=== PATIENT | male | born 1935 | race Caucasian/White ===

== ENCOUNTER 2017-05-12 08:17 | Day surgery (SDC) | payer MEDICARE, BC ==
[2017-05-12] MEDS ORDERED: TETRACAINE HCL 0.5% 15 ML OPTH BTL OPTH ONE ×2 (12:58→13:18)
[2017-05-12] MEDS ORDERED: LIDOCAINE 2% MDV (20MG/ML) 20ML VIAL IV ONE ×3 (12:58→15:08)
[2017-05-12] MEDS ORDERED: EPINEPHRINE 1 MG/ML AMPUL SQ ONE ×2 (12:58→13:18)
[2017-05-12] MEDS ORDERED: NEOMYCIN/POLY./DEXAM OPTH OINT OPTH ONE ×2 (12:58→13:18)
--- NOTE | 2017-05-12 15:00 | OP NOTE CHAMES ---
DATE OF PROCEDURE: 05/12/17 PREOPERATIVE DIAGNOSIS: Nuclear sclerotic cataract and posterior subcapsular cataract, left eye. POSTOPERATIVE DIAGNOSIS: Nuclear sclerotic cataract and posterior subcapsular cataract, left eye. OPERATION: Phacoemulsification of cataractous lens with implantation of intraocular lens. LENS IMPLANT USED: Lizama Model PCB00 + 21.0 diopters. COMPLICATIONS: None. PROCEDURE IN DETAIL: Following a retrobulbar and facial block, the patient was prepped and draped in the usual fashion for eye surgery. A lid speculum was placed in the left eye after which a 2.4 mm tunnel wound was placed at the temporal limbus and dissected into clear cornea. A paracentesis was placed at 2 oclock hours to the left and right of the initial incision and the chamber deepened with Viscoelastic. The keratome was then used to enter the anterior chamber after which the continuous circular capsulorrhexis was accomplished without difficulty using a bent needle and a Utrata forceps. Hydrodissection and hydrodelineation of the lens was performed after which the nucleus of the lens was removed using the Phaco handpiece in the [id number] technique. The residual cortical material was irrigated and aspirated from the eye after which the bag and chamber were re-examined. The bag was re-inflated with Viscoelastic and the intraocular lens injected into the capsular bag where it centered well. The Viscoelastic was then copiously irrigated and aspirated from the eye after which the temporal tunnel wound and paracentesis were hydrated and the wounds were examined. They were noted to be watertight. The lid speculum was removed from the eye and the eye patched and shielded. The patient was transferred to the recovery room in satisfactory condition and given an appointment to be reexamined in the clinic later today or as directed by Dr. Muse. Michael Muse M.D. Date & Time JOB NUMBER: [id number] MTDD
[2017-05-12] MEDS ORDERED: PROPOFOL 10 MG/ML VIAL IV ONE (15:08)
== END 2017-05-12 10:27 | disposition home or self-care (01) ==
LOC: SUR 08:17
PROVIDERS: ATTEND Ophthalmology
DX: H25.12 Age-related nuclear cataract, left eye (principal); E03.9 Hypothyroidism, unspecified; I48.2 Chronic atrial fibrillation; H25.042 Posterior subcapsular polar age-related cataract, left eye
CPT/HCPCS: J0171

== ENCOUNTER 2017-07-17 12:18 | Inpatient (IN) | payer MEDICARE, BC ==
[2017-07-19] MEDS ORDERED: IPRATROPIUM/ALBUTEROL (0.5MG/3MG) NEB INH PRN (16:54)
[2017-07-19] MEDS ORDERED: OXYCODONE HCL/APAP 5MG/325MG TABLET PO PRN ×2 (16:55)
--- NOTE | 2017-07-19 17:52 | Physical Therapy Tx Note ---
Physical Therapy Tx Note - Treatment Note Physical Therapy Tx Note: Detail (Unable to see patient, returned from OR late and complained of nausea and LE numbness.)
[2017-07-19] MEDS: ATORVASTATIN 20 MG TABLET PO SCH (21:18)
[2017-07-19] MEDS: DIPHENHYDRAMINE HCL 25 MG CAPSULE PO PRN (21:18)
[2017-07-19] MEDS: MAGNESIUM OXIDE 400 MG TABLET PO SCH (21:18)
[2017-07-19] MEDS: METOPROLOL TART 25 MG TABLET PO SCH (21:18)
[2017-07-19] MEDS: CALCIUM CARB/VITAMIN D 500MG/200IU PO SCH (21:18)
[2017-07-20] MEDS: PANTOPRAZOLE SODIUM 40 MG TABLET PO SCH (06:16)
[2017-07-20] MEDS: LEVOTHYROXINE SODIUM 50 MCG TABLET PO SCH (06:16)
[2017-07-20 06:56] LABS: HEMATOCRIT 26.9 % (42.0-52.0); HEMOGLOBIN 8.5 gm/dl (14.0-18.0); MEAN CELL VOLUME 95.7 fl (81-97); MEAN CORPUSCULAR HEMOGLOBIN 30.2 pg (27-33); MEAN CORPUSCULAR HGB CONC 31.6 g/dl (32-36); PLATELET COUNT 398 K/uL (130-400); RED BLOOD COUNT 2.81 M/uL (4.40-5.70); RED CELL DISTRIBUTION WIDTH 14.7 % (11.5-14.5); WHITE BLOOD COUNT W/O DIFF 10.2 K/uL (4.2-12.2)
[2017-07-20 07:10] LABS: HYPOCHROMIA 1+; PLATELET ESTIMATE NORMAL (NORMAL)
[2017-07-20 07:12] LABS: ALB/GLOB RATIO 1.3 (1.1-1.8); ALBUMIN 3.3 gm/dL (3.5-5.0); ALKALINE PHOSPHATASE 74 U/L (38-126); ALT/SGPT 38 U/L (21-72); ANION GAP 9.8 (7-16); AST/SGOT 27 U/L (17-59); BILIRUBIN,TOTAL 1.86 mg/dL (0.2-1.3); BLOOD UREA NITROGEN 16 mg/dL (9-20); CARBON DIOXIDE 28.2 mmol/L (22-30); CREATININE 1.1 mg/dL (0.66-1.25); EST GLOMERULAR FILTRATION RATE > 60 ml/min; GLUCOSE,RANDOM 94 mg/dL (70-110); TOTAL PROTEIN 5.8 gm/dL (6.3-8.2)
[2017-07-20] MEDS: PREDNISONE 5 MG TAB PO SCH (09:01)
[2017-07-20] MEDS: AMIODARONE HCL 200 MG TABLET PO SCH (10:09)
[2017-07-20] MEDS: MAGNESIUM OXIDE 400 MG TABLET PO SCH ×2 (10:09→21:34)
[2017-07-20] MEDS: CALCIUM CARB/VITAMIN D 500MG/200IU PO SCH ×2 (10:09→21:34)
[2017-07-20] MEDS: ASPIRIN 81 MG TABEC PO SCH (10:09)
[2017-07-20] MEDS: METOPROLOL TART 25 MG TABLET PO SCH ×2 (10:10→21:41)
[2017-07-20] MEDS: PATIENT OWN MED: FINASTERIDE 5 MG PO SCH (10:10)
[2017-07-20] MEDS: [UNRECOGNIZED DRUG - OTHER] PO SCH (10:11)
[2017-07-20] MEDS: SENNOSIDES/DOCUSATE SODIUM UD CAPSULE PO PRN (10:16)
[2017-07-20] MEDS ORDERED: POTASSIUM CHLORIDE 20 MEQ/15ML CUP PO ONE (13:08)
--- NOTE | 2017-07-20 13:09 | History & Physical ---
History of Present Illness - Date Date of Service for History & Physical: 07/20/17 - History of Present Illness Admitting Diagnosis: Deconditioning due to AAA History of Present Illness: 81 yo male admitted to our NEO unit following AAA repair 07/11/17. PMHx of RA, TIA, paroxysmal afib, hypercholesterolemia, BPH, and bilateral inguinal hernia repair. Patient had CT imaging of abdomen prior to inguinal hernia repair. This is when patient's AAA was discovered. This was monitored for a year, however, noting growth from 3.6 to 4.5 cm & juxtarenal, patient and choose to have elective repair completed. 07/[address] Gladis Sanchez for routine open repair of AAA. During the procedure, patient experienced significant blood loss. This was replaced wth cell save but post op coagulopathy developed. This was treated with FFP. Patient was extubated after surgery but required reintubation in pacu. He was transferred to ICU on the ventilator post op. Initially, he was managed w/ crystal volume replacement, required transfusion to support BP. POD1: required additional transfusion of PRC, extubated but continued to require increased O2. Switched to high flow oxygen. Gallego d/c'd. Day 2: diuresis, reglan for gastric mobility, CLD. #3: removal of chest tubes, resp status stable, high flow weaned to NC, diuresis increased, activity also increased. #4: drop in hgb , hypoxia improved (on 2 L NC), diuresis continued. #5: bowel movement. transferred to step down. #6: diuresis, electrolytes replaced. #7: oxygen weaned , tolerating RA. Diuretic held, albumin given. #8: ready for NEO. Patient retired. Lives at home with . Prior to surgery, patients independent with ADLS. He assisted with yard work and house chores. Lives in a two story home. Three steps into the house with railing. PCP: Dr. Lynn Cardiothoracic surgeon: Dr. Gladis Sanchez- f/up visit 08/18 General - Cognitive Patterns Speech: Normal Thought Process: Intact Thought Content: Normal Orientation: Oriented x3 Orientation Comment: Has moments of confusion - Communication Preferred Language?: Estonian Perinatal Specialist Required: No Level of Education: High School Preferred Method of Learning: Seeing, Doing, Reading Comprehension Ability: No Impairment Able to Read: Yes Able to Write: Yes Select best description of speech pattern: Clear Speech Ability to express ideas and wants: Understood Understanding verbal content: Understands - Psychosocial Well-Being Usual Living Arrangement: Spouse - Physical Functioning Activity Level: Up with assist x1 Turning: With partial assist ROM Ability: Limited/Compromised Assistive Devices: 2 Wheel Walker Ambulation Ability: Needs Assist Bed Mobility: Independent Transfer Ability: Needs Assist Bathing Ability: Needs Assist Personal Hygiene: Needs Assist Dressing Ability: Needs Assist Eating (Feeding) Ability: Independent Toileting Ability: Needs Assist Administer Own Medication: Dependent - Continence Bowel Pattern: Normal for Patient Bladder Pattern: Normal - Dental Status Unable to examine: No Broken or loosely fitting full or partial dentures: No No natural teeth or tooth fragment(s) (edentulous): No Abnormal mouth tissue (ulcers, masses, oral lesions, etc.): No Obvious or likely cavity or broken natural teeth: No Inflamed or bleeding gums or loose natural teeth: No Mouth/facial pain, discomfort or difficulty chewing: No - Nutrition Screening Poor oral intake > 1 week: Yes Unplanned weight loss in specified time frame: No Nutrition Support via tube feedings or parenteral nutrition: No Pressure Ulcer: No Significantly underweight define as BMI <18.5 kg/m2: No Albumin <2.5mg/dL: No Persistent nausea/vomiting/diarrhea >3 days: No Difficulty chewing/swallowing/mouth sores: No Admitting Diagnosis: No Nutrition Risk Score: High Risk Review of Systems Constitutional: Denies: Chills, Fever, Night sweats, Weakness Eyes: Denies: Vision change ENT: Denies: Congestion Respiratory: Denies: Cough, Dyspnea, Wheezes Cardiovascular: Denies: Chest pain, Dyspnea on exertion, Palpitations Endocrine: Reports: Fatigue. Denies: Polydipsia, Polyuria Gastrointestinal: Denies: Abdominal pain, Constipation, Diarrhea, Hematemesis, Hematochezia, Nausea, Vomiting Genitourinary: Denies: Dysuria, Frequency Musculoskeletal: Reports: Back pain (chronic) Skin: Reports: Change in color (at suture sites, normal healing) Neurological: Reports: Weakness (since surgery, unchanged). Denies: Confusion, Headache, Numbness Hematological/Lymphatic: Reports: Anemia Past Medical History - SOCIAL HISTORY Smoking Status: Former smoker - SURGICAL HISTORY Past Surgical History: TURPx2; inguinal hernia repair; right foot sx february 28 , AAA repair, cateract removal left eye, hernia surgeryx3, arthritis nodules removed from hands, right foot rebuilt, trigger finger release, callous removal - RESPIRATORY Hx Respiratory Disorders: Yes Hx Asthma: No Hx Bronchitis: No Hx COPD: Yes Hx Dyspnea: No Hx Pneumonia: Yes (oct 29) Hx Pulmonary Embolism: No Hx Sleep Apnea: No Hx Tuberculosis: No Hx of CPAP: No - CARDIOVASCULAR Hx Cardio Disorders: Yes Hx Abnormal EKG: Yes (afib) Hx Cardiac Cath: No Hx Chest Pain: No Hx CHF: No Hx Deep Vein Thrombosis: No Hx Edema: No Hx Heart Attack: No Hx Hypertension: No Hx Hypotension: No Hx Irregular Heartbeat: Yes Hx Palpitations: No Hx Pacemaker/Defib: No Hx Vascular Disease: No Comment:: AAA repair 2017 - NEURO Hx Neuro Disorders: Yes Hx Brain Tumor: No Hx CVA: No Hx Dementia: No Hx Dizziness: No Hx Headaches: No Hx Neuropathy: No Hx Parkinson's Disease: No Hx Seizures: No Hx Speech Problem: No Hx TIA: Yes Comment:: very [place]; has hearing aides - GI Hx GI Disorders: Yes Hx Abdominal Pain: No Hx Celiac Disease: No Hx Crohn's Disease: No Hx Diverticulitis: No Hx GI Bleed: No Hx Reflux: Yes (meds) Hx Hepatitis/Jaundice: No Hx Hiatal Hernia: No Hx Irritable Bowel: No Hx Liver Disease: No Hx Nausea/Vomiting: No Hx Obstructive Bowel: No Hx Pancreatitis: No Hx Rectal Bleeding: No Hx Ulcer: No Hx Wt Loss/Wt Gain: No Hx of Polyps: Yes - Hx Genitourinary Disorders: Yes Hx Bladder Problem: Yes Hx Dialysis: No Hx Kidney Stones: No Hx Prostate Problems: Yes (turp) Hx Renal Disease: No Hx UTI: No - ENDOCRINE Hx Endocrine Disorders: Yes Hx Diabetes: No Hx Thyroid Disease: Yes - MUSCULOSKELETAL Hx Musculoskeletal Disorders: Yes Hx Arthritis: Yes (ra) Hx Back Injury: No Hx Fibromyalgia: No Hx Gout: No Hx Musculoskeletal Disease: No Hx Osteoporosis: Yes (Prolia injection) Comment:: RA - PSYCH Hx Psych Problems: No - HEMATOLOGY/ONCOLOGY Hx Hematology/Oncology Disorders: Yes Hx Anemia: Yes Hx Blood Disorders: No Hx Bruising: Yes Hx Cancer: Yes (skin cancer) Hx Chemotherapy: No Hx Radiation Therapy: No Hx Clotting Problems: No Hx Sickle Cell Disease: No Hx Unexplained Bleeding: No Hx Blood Transfusions: Yes Hx Blood Transfusion Reaction: No Comment:: cannot use aspirin or Xalarto.. prostate; Family Medical History Any Significant Family History?: Yes Family Hx Comment (NOT TO BE USED IN PLACE OF ITEMS BELOW): mother had MS Hx Cancer: Brother/Sister Hx Diabetes: Mother Hx Heart Disease: Brother/Sister Hx Stroke: Mother H&P Meds/Allergies - Allergies Allergies: Allergies Allergy/AdvReac Type Severity Reaction Status Date / Time amoxicillin AdvReac NAUSEA AND Verified 05/12/15 10:36 VOMITING aspirin AdvReac BRUISING Verified 05/06/17 10:07 diphenhydramine AdvReac BLURRED Verified 05/06/17 10:08 VISION rivaroxaban [From Xarelto] AdvReac BRUISING Verified 05/06/17 10:06 sotalol AdvReac CHEST PAIN Verified 05/06/17 10:05 - Home Medications Previous Rx's Medication Instructions Recorded Sulfacetamide Sodium [Bleph10] 2 drop AFFEYE Q6HR #15 ml 05/12/15 - Active Medications Active Medications: Current Medications Acetaminophen (Tylenol 500mg Tab) 1,000 mg PO Q6H PRN PRN Reason: Pain - Moderate (5-7) Albuterol/Ipratropium (Duoneb) 3 ml INH Q6H PRN PRN Reason: SHORTNESS OF BREATH Amiodarone HCl (Pacerone) 100 mg PO DAILY [facility] Last Admin: 07/20/17 10:09 Dose: 100 mg Aspirin (Ecotrin (Ec)) 81 mg PO DAILY [facility] Last Admin: 07/20/17 10:09 Dose: 81 mg Atorvastatin Calcium (Lipitor) 40 mg PO QHS [facility] Last Admin: 07/19/17 21:18 Dose: 40 mg Calcium/Vitamin D (Calcium 500+D Tablet) 1 tab PO BID [facility] Last Admin: 07/20/17 10:09 Dose: 1 tab Diphenhydramine HCl (Benadryl Capsule) 25 mg PO QHS PRN PRN Reason: SLEEP Last Admin: 07/19/17 21:18 Dose: 25 mg Levothyroxine Sodium (Synthroid) 50 mcg PO DAILYTHY [facility] Last Admin: 07/20/17 06:16 Dose: 50 mcg Magnesium Oxide (Mag Ox) 400 mg PO BID [facility] Last Admin: 07/20/17 10:09 Dose: 400 mg Metoprolol Tartrate (Lopressor) 12.5 mg PO BID [facility] Last Admin: 07/20/17 10:10 Dose: 12.5 mg Oxycodone/Acetaminophen (Percocet 5-325 Mg Tablet) 1 udtab PO Q4H PRN PRN Reason: Pain - General Stop: 07/26/17 16:56 Last Admin: 07/19/17 19:12 Dose: 1 udtab Oxycodone/Acetaminophen (Percocet 5-325 Mg Tablet) 2 udtab PO Q4H PRN PRN Reason: Pain - General Stop: 07/26/17 16:56 Last Admin: 07/19/17 23:30 Dose: 2 udtab Pantoprazole Sodium (Protonix) 40 mg PO DAILYAC [facility] Last Admin: 07/20/17 06:16 Dose: 40 mg Patient Own Med: (Ocuvite Generic) 1 each PO DAILY [facility] Last Admin: 07/20/17 10:11 Dose: 1 each Patient Own Med: (Finasteride 5 Mg) 1 each PO DAILY [facility] Last Admin: 07/20/17 10:10 Dose: 1 each Potassium Chloride (Potassium Chloride) 20 meq PO NOW ONE Stop: 07/20/17 13:09 Prednisone (Prednisone 5mg) 2.5 mg PO DAILYWM [facility] Last Admin: 07/20/17 09:01 Dose: 2.5 mg Senna/Docusate Sodium (Senna Plus) 2 each PO BID PRN PRN Reason: CONSTIPATION Last Admin: 07/20/17 10:16 Dose: 2 each Physical Exam - Vital Signs Vital Signs: Vital Signs - Last 24 Hrs Temp Pulse Resp BP BP Pulse Ox 07/20/17 11:11 97.8 F 111/59 07/19/17 21:00 97.8 F 71 16 111/59 97 07/19/17 16:35 72 16 121/54 93 L - General General Appearance: Alert, Oriented x3, Cooperative, No acute distress Limitations: No limitations - Head Head exam: Atraumatic, Normocephalic - Eye Eye exam: Normal appearance - ENT ENT exam: Normal exam Ear exam: Normal external inspection Nasal Exam: Normal inspection Mouth exam: Normal external inspection Teeth exam: Normal inspection Throat exam: Normal inspection - Neck Neck exam: Normal inspection - Respiratory Respiratory exam: Normal lung sounds bilaterally - Cardiovascular Cardiovascular Exam: Regular rate, Normal rhythm - GI/Abdominal GI/Abdominal exam: Soft, Normal bowel sounds. negative: Distended, Guarding, Rebound - Rectal Rectal exam: Deferred - exam: Deferred - Extremities Extremities exam: Normal inspection, Normal capillary refill. negative: Calf tenderness, Tenderness - Back Back exam: Reports: Normal inspection - Neurological Neurological exam: Alert - Skin Skin exam: Dry, Warm Type of lesion: Other (b/l groin and left lateral abd incision open to air, small old blister sites now open to air. [address] site) H&P Results - Labs Result Diagrams: 07/20/17 06:15 07/20/17 06:15 Labs Last 24 Hours: Laboratory Results - last 24 hr 07/20/17 07/20/17 06:15 06:15 WBC 10.2 RBC 2.81 L Hgb 8.5 L Hct 26.9 L MCV 95.7 MCH 30.2 MCHC 31.6 L RDW 14.7 H Plt Count 398 MPV 10.0 Neutrophils % 75.0 Band Neutrophils % 1.0 Eosinophils % Not Reportable Basophils % Not Reportable Lymphocytes 15.0 L Monocytes 9.0 Platelet Estimate Normal Hypochromasia 1+ Sodium 140 Potassium 3.2 L Chloride 102 Carbon Dioxide 28.2 Anion Gap 9.8 BUN 16 Creatinine 1.1 Estimated GFR > 60 Random Glucose 94 Calcium 8.9 Total Bilirubin 1.86 H AST 27 ALT 38 Alkaline Phosphatase 74 Total Protein 5.8 L Albumin 3.3 L Globulin 2.5 Albumin/Globulin Ratio 1.3 Discharge Potential - Discharge Needs Community Services Used Prior to Admission: Home Health Nurse Patient Discharge Plan Description: Return Home Community Services Needed at Discharge: Home Health Nurse, Occupational Therapy , Physical Therapy Plan - Swing Bed Certification Initial Certification Due: 07/19/17 14 Day Re-Cert Due: 08/02/17 44 Day Re-Cert Due: 09/01/17 74 Day Re-Cert Due: 10/01/17 - Detailed Diagnosis and Plan (1) S/P AAA repair Current Visit: Yes Status: Acute Base Code: Z98.890 - OTHER SPECIFIED POSTPROCEDURAL STATES; Z86.79 - PERSONAL HISTORY OF OTHER DISEASES OF THE CIRCULATORY SYSTEM Comment: 07/20/17- 81 yo male s/p elective AAA repair post op day 9. Admitted to our NEO unit for generalized weakness following surgery. - will continue home medications. Hold MTX until follow up visit 08/18. - f/up with Dr. Gladis Sanchez M.D. Aug 18 as scheduled - VS twice daily - PT/OT to help build physical strength and functioning - Dietary evaluation noting low albumin, malnourished - daily h/h to moniter anemia (2) Weakness Current Visit: Yes Status: Acute Base Code: R53.1 - WEAKNESS Comment: - PT/OT to help build physical strength and functioning (3) Anemia Current Visit: Yes Status: Acute Base Code: D64.9 - ANEMIA, UNSPECIFIED Comment: 07/20/17- related to post op. stable from d/c. no signs of blood loss. continue to montor h/h. (4) DVT prophylaxis Current Visit: Yes Status: Acute Base Code: [id number] - Comment: 07/20/17- asa, pavel hose. avoid anti coagulation noting risk for penile bleeding. Will attemp to contact cardiothoracic surgeon to confirm. patient ambulating the room and participating in therapy. (5) Full code status Current Visit: Yes Status: Acute Base Code: Z78.9 - OTHER SPECIFIED HEALTH STATUS Comment: 07/20/17- pt is full code
--- NOTE | 2017-07-20 13:27 | Rehab Evaluation ---
Patient Information - Patient Information Diagnosis: Deconditioning due to AAA Ordered Treatment: PT Evaluate and Treat Status: Initial Evaluation Past Medical/Surgical Hx: PAST MEDICAL/SURGICAL HISTORY Past Surgical History TURPx2; inguinal hernia repair; right foot sx february 28, AAA repair, cateract removal left eye , hernia surgeryx3, arthritis nodules removed from hands, right foot rebuilt, trigger finger release, callous removal PMH - Respiratory Hx Respiratory Disorders Yes Hx Asthma No Hx Bronchitis No Hx Chronic Obstructive Yes Pulmonary Disease (COPD) Hx Dyspnea No Hx Pneumonia Yes: oct 29 Hx Pulmonary Embolism No Hx Sleep Apnea No Hx Tuberculosis No Hx of CPAP No PMH - Cardiovascular Hx Cardiovascular Disorders Yes Hx Abnormal EKG Yes: afib Hx Cardiac Catheterization No Hx Chest Pain No Hx Congestive Heart Failure No Hx Deep Vein Thrombosis No Hx Edema No Hx Heart Attack No Hx Hypertension No Hx Hypotension No Hx Irregular Heartbeat Yes Hx Palpitations No Hx Pacemaker/Defibrillator No Hx Vascular Disease No Hx Transient Ischemic Attacks Yes (TIA) Comment: AAA repair 2016 PMH - Neuro Hx Neurological Disorders Yes Hx Brain Tumor No Hx Cerebrovascular Accident No Hx Dementia No Hx Dizziness No Hx Headaches No Hx Neuropathy No Hx Parkinson's Disease No Hx Seizures No Hx Speech Problem No Hx Syncope No Hx Transient Ischemic Attacks Yes (TIA) Comment: very [place]; has hearing aides PMH - GI Hx Gastrointestinal Disorders Yes Hx Abdominal Pain No Hx Celiac Disease No Hx Crohn's Disease No Hx Diverticulitis No Hx Gastrointestinal Bleed No Hx Gastroesophageal Reflux Yes: meds Hx Hepatitis/Jaundice No Hx Hiatal Hernia No Hx Irritable Bowel No Hx Liver Disease No Hx Nausea/Vomiting No Hx Obstructive Bowel No Hx Pancreatitis No Hx Rectal Bleeding No Hx Ulcer No Hx Weight Loss/Weight Gain No PMH - Hx Genitourinary Disorders Yes Hx Bladder Problem Yes Hx Dialysis No Hx Kidney Stones No Hx Prostate Problems Yes: turp Hx Renal Disease No Hx Urinary Tract Infection No PMH - Endocrine Hx Endocrine Disorders Yes Hx Diabetes No Hx Thyroid Disease Yes PMH - Musculoskeletal Hx Musculoskeletal Disorders Yes Hx Arthritis Yes: ra Hx Back Injury No Hx Fibromyalgia No Hx Gout No Hx Musculoskeletal Disease No Hx Osteoporosis Yes: Prolia injection Comment: RA PMH - Psych Hx Psychiatric Problems No PMH - Hematology/Oncology Hx Hematology/Oncology Yes Disorders Hx Anemia Yes Hx Blood Disorders No Hx Bruising Yes Hx Cancer Yes: skin cancer Hx Chemotherapy No Hx Radiation Therapy No Hx Clotting Problems No Hx Sickle Cell Disease No Hx Unexplained Bleeding No Hx Blood Transfusion Reaction No Comment: cannot use aspirin or Xalarto.. prostate; Premorbid Status: Detail (The patient was previously independent with all mobility and ambulated without assistive device. The patient completed all yard work and assisted with lye treater at times.) Social History: Detail (The patient lives in a 2 story home with a basement. The patient's bedroom and main bathroom are on the second floor. The patient stated his staircase to the second floor consisted of 2 steps, a landing , then a full flight of stairs with one railing. The patient's home also had 3 steps at the front and back enterance with 1 railing. The patient's bathroom is equipped with a walk in shower in the main bathroom and elevated toilet seats in both bathrooms. No grab bars were present in the bathrooms. The patient has a walker with 2 wheels and a 4 wheeled walker.) Precautions: [place], Fall - Time With Patient Total Time Spent With Patient (Min): 30 Treatment Procedures: Detail (Initial Evaluation.) Subjective Information - Subjective Information Per Patient (The patient had some complaints of lower back pain level 2 at the highest. The patient also complained of fatigue after ambulating.) Objective Data - Mental Status Patient Orientation: Oriented x3 - ROM Within normal limits (LE AROM is WNL.) - Strength/Tone Not within normal limits (The patient's LE strength was generally 4+ to 5/5 except for hip flexors bilaterally 4/5, L quadriceps and hamstrings 4/5.) - Bed Mobility Independent (Independent with supine to and from sit transfer but not formally assessed.) - Transfers Independent (Independent with sit to and from stand transfer.) - Balance Balance Sitting: Good Balance Standing: Fair (The patient scored 20/28 using the Tinetti Assessment Tool which is in the moderate for risk for falling category. The patient exhibited increased postural sway when walking without device.) - Gait Detail (The patient ambulated with wheeled walker a distance of 120 feet x 1 with supervision for safety only. The patient required CG with ambulation without device due to increased postural sway. The patient experienced shortness of breath after ambulating.) Therapy Assessment - Therapy Assessment Detail (The patient exhibits decreased ability to complete sustained physical activity, decreased balance and LE weakness. The patient's family was present for evaluation and all were instructed the patient is to walk with walker and nursing staff due to unsteadiness. The patient is a good Rehab candidate.) Problem List - Problem List Physical Therapy Problem List: Detail (1) Decreased ability to complete prolonged physical activity 2) Moderate Risk for fall per the Tinetti Assessment Tool 3) Decreased LE strength 4) Shortness of breath with ambulating distances.) Goals - Goals Physical Therapy Goals: 1) The patient will be independent with ambulation with or without assistive device distances of 200 feet with minimal shortness of breath. 2) The patient will be independent with ambulation with stairclimbing a flight of stairs. 3) The patient's balance will improve 3 to 4 points using the Tinetti Assessment Tool. 4) The patient will tolerate 30 minutes of physical activity with 1 to 2 rest periods. 5) Independent with all bed mobility and transfers. Prognosis - Prognosis Good Plan - Plan Physical Therapy Plan: PT M-F 1-2 times a day for gait training, transfer training, balance exercies and LE exercises.
[2017-07-20] MEDS ORDERED: HYDROCODONE/APAP 5/325MG TABLET PO PRN (13:49)
--- NOTE | 2017-07-20 13:51 | Rehab Evaluation ---
Patient Information - Patient Information Diagnosis: Deconditioning due to AAA Ordered Treatment: OT Evaluate and Treat Status: Initial Evaluation Surgery: Yes (AAA repair 07/11/17) Past Medical/Surgical Hx: PAST MEDICAL/SURGICAL HISTORY Past Surgical History TURPx2; inguinal hernia repair; right foot sx february 28, AAA repair, cateract removal left eye , hernia surgeryx3, arthritis nodules removed from hands, right foot rebuilt, trigger finger release, callous removal PMH - Respiratory Hx Respiratory Disorders Yes Hx Asthma No Hx Bronchitis No Hx Chronic Obstructive Yes Pulmonary Disease (COPD) Hx Dyspnea No Hx Pneumonia Yes: oct 29 Hx Pulmonary Embolism No Hx Sleep Apnea No Hx Tuberculosis No Hx of CPAP No PMH - Cardiovascular Hx Cardiovascular Disorders Yes Hx Abnormal EKG Yes: afib Hx Cardiac Catheterization No Hx Chest Pain No Hx Congestive Heart Failure No Hx Deep Vein Thrombosis No Hx Edema No Hx Heart Attack No Hx Hypertension No Hx Hypotension No Hx Irregular Heartbeat Yes Hx Palpitations No Hx Pacemaker/Defibrillator No Hx Vascular Disease No Hx Transient Ischemic Attacks Yes (TIA) Comment: AAA repair 2016 PMH - Neuro Hx Neurological Disorders Yes Hx Brain Tumor No Hx Cerebrovascular Accident No Hx Dementia No Hx Dizziness No Hx Headaches No Hx Neuropathy No Hx Parkinson's Disease No Hx Seizures No Hx Speech Problem No Hx Syncope No Hx Transient Ischemic Attacks Yes (TIA) Comment: very [place]; has hearing aides PMH - GI Hx Gastrointestinal Disorders Yes Hx Abdominal Pain No Hx Celiac Disease No Hx Crohn's Disease No Hx Diverticulitis No Hx Gastrointestinal Bleed No Hx Gastroesophageal Reflux Yes: meds Hx Hepatitis/Jaundice No Hx Hiatal Hernia No Hx Irritable Bowel No Hx Liver Disease No Hx Nausea/Vomiting No Hx Obstructive Bowel No Hx Pancreatitis No Hx Rectal Bleeding No Hx Ulcer No Hx Weight Loss/Weight Gain No PMH - Hx Genitourinary Disorders Yes Hx Bladder Problem Yes Hx Dialysis No Hx Kidney Stones No Hx Prostate Problems Yes: turp Hx Renal Disease No Hx Urinary Tract Infection No PMH - Endocrine Hx Endocrine Disorders Yes Hx Diabetes No Hx Thyroid Disease Yes PMH - Musculoskeletal Hx Musculoskeletal Disorders Yes Hx Arthritis Yes: ra Hx Back Injury No Hx Fibromyalgia No Hx Gout No Hx Musculoskeletal Disease No Hx Osteoporosis Yes: Prolia injection Comment: RA PMH - Psych Hx Psychiatric Problems No PMH - Hematology/Oncology Hx Hematology/Oncology Yes Disorders Hx Anemia Yes Hx Blood Disorders No Hx Bruising Yes Hx Cancer Yes: skin cancer Hx Chemotherapy No Hx Radiation Therapy No Hx Clotting Problems No Hx Sickle Cell Disease No Hx Unexplained Bleeding No Hx Blood Transfusion Reaction No Comment: cannot use aspirin or Xalarto.. prostate; Premorbid Status: Detail (Pt lives with spouse in a 2 story house with basement. He has 3 steps and 1 handrailing at the entrance, his bedroom and full bathroom are on the second floor. He has a walk in shower, no grab bar or seat. He usually stands to shower and was Ind with all ADLs, yard work, grilling and sharing home mgmt. He has elevated toilet seats, no grab bars. He ambulated without an assistive device but has a 2 wheeled walker. He plays in a band as well.) Precautions: Benson, Fall - Time With Patient Total Time Spent With Patient (Min): 40 Treatment Procedures: Detail (OT eval low complexity) Subjective Information - Subjective Information Per Patient, Other (Spouse and daughter present during evaluation) Objective Data - Pain Pain Present: Yes (2/10 pain in mid back) - Mental Status Patient Orientation: Oriented x3 - Visual Perception Appears within normal limits for therapeutic activities (Pt wears glasses at all times.) - ROM Within normal limits (Bebeto UE AROM WNL although he has deformities in bebeto wrists and hands due to arthritis.) - Strength/Tone Within normal limits (Bebeto UE MMT 4+/5, pt very easily fatigued and became short of breath with any light activity.) - Coordination Appears within normal limits for therapeutic activities - Transfers Needs Assist (CG assist for sit to stand from chair.) - Balance Balance Sitting: Good Balance Standing: Fair - Sensation Intact - Gait Detail (Pt able to ambulate to bathroom with 2 wheeled walker and CG assist. Pt became very short of breath with mobility.) - ADL's/IADL's Detail (Pt able to don slip on slippers, doff gown and don t-shirt Indly with rest breaks, he was able to brush teeth at sink although he was very fatigued and short of breath.) Therapy Assessment - Therapy Assessment Detail (Pt presents with significantly impaired endurance needed for safe return home, decreased Ind with self care activities and functional mobility.) Problem List - Problem List Occupational Therapy Problem List: Detail (1. Decreased Ind with total body dressing. 2. Decreased Ind with showering. 3. Decreased endurance needed for safe and Ind self care activities.) Goals - Goals Occupational Therapy Goals: 1. Pt will be safe and Ind with total body dressing. 2. Pt will be safe and Ind with showering in sitting or standing. 3. Pt will participate in overall endurance activities to allow for safe and Ind return to premorbid activities. Prognosis - Prognosis Good Plan - Plan Occupational Therapy Plan: OT 2-4 days per week to address self cares, functional mobility/endurance activities to allow safe and Ind return home.
[2017-07-20] MEDS: ACETAMINOPHEN 500 MG TABLET PO PRN (20:05)
[2017-07-20] MEDS: DIPHENHYDRAMINE HCL 25 MG CAPSULE PO PRN (21:34)
[2017-07-20] MEDS: ATORVASTATIN 20 MG TABLET PO SCH (21:34)
[2017-07-20] MEDS: TRAMADOL HCL 50 MG TABLET PO PRN (21:35)
[2017-07-21] MEDS: PANTOPRAZOLE SODIUM 40 MG TABLET PO SCH (06:36)
[2017-07-21] MEDS: LEVOTHYROXINE SODIUM 50 MCG TABLET PO SCH (06:36)
[2017-07-21 08:02] LABS: HEMATOCRIT 27.1 % (42.0-52.0); HEMOGLOBIN 8.4 gm/dl (14.0-18.0); MEAN CELL VOLUME 95.8 fl (81-97); MEAN PLATELET VOLUME 9.8 fl (7.4-10.4); PLATELET COUNT 444 K/uL (130-400); RED BLOOD COUNT 2.83 M/uL (4.40-5.70); RED CELL DISTRIBUTION WIDTH 14.5 % (11.5-14.5); WHITE BLOOD COUNT W/O DIFF 13.4 K/uL (4.2-12.2)
[2017-07-21 08:03] LABS: MEAN CORPUSCULAR HEMOGLOBIN 29.6 pg (27-33)
[2017-07-21 08:19] LABS: HYPOCHROMIA 1+; PLATELET ESTIMATE NORMAL (NORMAL)
--- NOTE | 2017-07-21 09:30 | Physical Therapy Tx Note ---
Physical Therapy Tx Note - Treatment Note Tolerated: Good Total Time Spent With Patient: 30 Physical Therapy Tx Note: Detail (Patient states doing well this morning, left trunk sore. Patient transferred sit to and from stand SBA x1. Patient ambulated 280 feet with wheeled walker SBA x1. Patient performed the following exercises x15 reps each: seated marching, LAQ, hamstring curls with red theraband, seated hip abduction with red theraband, seated isometric hip adduction, seated heel raises, seated toe raises, and glut squeezes. Patient tolerated treatment well. Patient displays some shortness of breath with ambulation. Patient reports fatigued after treatment. Patient was left seated in chair with call light within reach.) Physical Therapy Problem List: Detail (1) Decreased ability to complete prolonged physical activity 2) Moderate Risk for fall per the Tinetti Assessment Tool 3) Decreased LE strength 4) Shortness of breath with ambulating distances.) Physical Therapy Goals: 1) The patient will be independent with ambulation with or without assistive device distances of 200 feet with minimal shortness of breath. 2) The patient will be independent with ambulation with stairclimbing a flight of stairs. 3) The patient's balance will improve 3 to 4 points using the Tinetti Assessment Tool. 4) The patient will tolerate 30 minutes of physical activity with 1 to 2 rest periods. 5) Independent with all bed mobility and transfers. Prognosis: Good Physical Therapy Plan: PT M-F 1-2 times a day for gait training, transfer training, balance exercies and LE exercises.
[2017-07-21] MEDS: AMIODARONE HCL 200 MG TABLET PO SCH (11:50)
[2017-07-21] MEDS: PREDNISONE 5 MG TAB PO SCH (11:50)
[2017-07-21] MEDS: CALCIUM CARB/VITAMIN D 500MG/200IU PO SCH ×2 (11:50→21:04)
[2017-07-21] MEDS: ASPIRIN 81 MG TABEC PO SCH (11:51)
[2017-07-21] MEDS: METOPROLOL TART 25 MG TABLET PO SCH ×2 (11:51→21:03)
[2017-07-21] MEDS: MAGNESIUM OXIDE 400 MG TABLET PO SCH ×2 (11:52→21:04)
[2017-07-21] MEDS: SENNOSIDES/DOCUSATE SODIUM UD CAPSULE PO PRN (11:52)
[2017-07-21] MEDS: PATIENT OWN MED: FINASTERIDE 5 MG PO SCH (11:54)
[2017-07-21] MEDS: [UNRECOGNIZED DRUG - OTHER] PO SCH (11:55)
--- NOTE | 2017-07-21 16:18 | Physical Therapy Tx Note ---
Physical Therapy Tx Note - Treatment Note Tolerated: Good Total Time Spent With Patient: 35 Physical Therapy Tx Note: Detail (Patient states no new complaints. Patient transferred sit to and from stand SBA x1. Patient ambulated 372 feet with wheeled walker SBA x1. Patient performed the following exercises x15 reps each : seated marching, LAQ, hamstring curls with red theraband, seated heel raises, seated toe raises, seated hip abduction with red theraband, seated isometric hip adduction, glut squeezes, and abdominal isometrics x10. Patient tolerated treatment well. Patient displays decreased endurance with ambulation, seated marching, LAQ, hamstring curls, abdominal isometrics, and glut squeezes. Patient reports fatigued after treatment. Patient was left seated in chair with call light within reach.) Physical Therapy Problem List: Detail (1) Decreased ability to complete prolonged physical activity 2) Moderate Risk for fall per the Tinetti Assessment Tool 3) Decreased LE strength 4) Shortness of breath with ambulating distances.) Physical Therapy Goals: 1) The patient will be independent with ambulation with or without assistive device distances of 200 feet with minimal shortness of breath. 2) The patient will be independent with ambulation with stairclimbing a flight of stairs. 3) The patient's balance will improve 3 to 4 points using the Tinetti Assessment Tool. 4) The patient will tolerate 30 minutes of physical activity with 1 to 2 rest periods. 5) Independent with all bed mobility and transfers. Prognosis: Good Physical Therapy Plan: PT M-F 1-2 times a day for gait training, transfer training, balance exercies and LE exercises.
[2017-07-21] MEDS: ATORVASTATIN 20 MG TABLET PO SCH (21:04)
[2017-07-21] MEDS: TRAMADOL HCL 50 MG TABLET PO PRN (21:09)
[2017-07-21] MEDS: DIPHENHYDRAMINE HCL 25 MG CAPSULE PO PRN (21:09)
[2017-07-22] MEDS: PANTOPRAZOLE SODIUM 40 MG TABLET PO SCH (06:24)
[2017-07-22] MEDS: LEVOTHYROXINE SODIUM 50 MCG TABLET PO SCH (06:24)
[2017-07-22] MEDS: PREDNISONE 5 MG TAB PO SCH (08:13)
--- NOTE | 2017-07-22 10:29 | Occupational Therapy Tx Note ---
Occupational Therapy Tx Note - Treatment Note Tolerated: Good Total Time Spent With Patient: 45 (ADL) Occupational Therapy Treatment Note: Detail (S: Pt up in recliner, ready for showering. O: Sit to stand and amb to bathroom with CG assist. Pt doffed t- shirt, PJ bottoms and socks Indly in sitting and standing. Doffed right pavel sock Indly, unable to doff right pavel sock. Pt completed showering in sitting and standing using grab bars with assist for back and SBA when standing. Dried self Indly. Pt donned t-shirt, PJ bottoms and socks in sitting and standing. Pt toileted Indly. Pt amb back to chair with one loss of balance to rear which required min assist to maintain balance. Pt very fatigued and short of breath throughout activity A: SBA for dressing and showering in sitting and standing although pt very deconditioned and was short of breath throughout activity) Occupational Therapy Problem List: Detail (1. Decreased Ind with total body dressing. 2. Decreased Ind with showering. 3. Decreased endurance needed for safe and Ind self care activities.) Occupational Therapy Goals: 1. Pt will be safe and Ind with total body dressing. 2. Pt will be safe and Ind with showering in sitting or standing. 3. Pt will participate in overall endurance activities to allow for safe and Ind return to premorbid activities. Prognosis: Good Occupational Therapy Plan: OT 2-4 days per week to address self cares, functional mobility/endurance activities to allow safe and Ind return home.
[2017-07-22] MEDS: ASPIRIN 81 MG TABEC PO SCH (11:07)
[2017-07-22] MEDS: CALCIUM CARB/VITAMIN D 500MG/200IU PO SCH ×2 (11:07→21:18)
[2017-07-22] MEDS: AMIODARONE HCL 200 MG TABLET PO SCH (11:08)
[2017-07-22] MEDS: PATIENT OWN MED: FINASTERIDE 5 MG PO SCH (11:09)
[2017-07-22] MEDS: [UNRECOGNIZED DRUG - OTHER] PO SCH (11:10)
[2017-07-22] MEDS: METOPROLOL TART 25 MG TABLET PO SCH ×2 (11:15→21:18)
[2017-07-22] MEDS: MAGNESIUM OXIDE 400 MG TABLET PO SCH ×2 (11:16→21:16)
--- NOTE | 2017-07-22 14:23 | Physical Therapy Tx Note ---
Physical Therapy Tx Note - Treatment Note Tolerated: Good Total Time Spent With Patient: 30 Physical Therapy Tx Note: Detail (Pt was resting in chair upon arrival. Pt states tired this afternoon but willing to do some ex's. "If we don't have to go too far." Pt completed ex's while seated of marching, LAQ, Hs curls, hip adduction with pillow between knees all x 10 each and bilaterally. Pt did require a small rest period during ex's. Pt did sit to stand x 5. Pt completed balance activities of standing balance with manual resistance each direction, standing feet together, and tandem balance ex's for up to 60" each and bilateral for tandem. Pt. was instructed in pursed lip breathing. Pt became short of breath during ex's but recovered with short rest periods and breathing techniques. Pt returned to chair, and was given bed side table, and nursing call button. Pt states no complaints of pain after treatment but Pt. states tired after ex's.) Physical Therapy Problem List: Detail (1) Decreased ability to complete prolonged physical activity 2) Moderate Risk for fall per the Tinetti Assessment Tool 3) Decreased LE strength 4) Shortness of breath with ambulating distances.) Physical Therapy Goals: 1) The patient will be independent with ambulation with or without assistive device distances of 200 feet with minimal shortness of breath. 2) The patient will be independent with ambulation with stairclimbing a flight of stairs. 3) The patient's balance will improve 3 to 4 points using the Tinetti Assessment Tool. 4) The patient will tolerate 30 minutes of physical activity with 1 to 2 rest periods. 5) Independent with all bed mobility and transfers. Prognosis: Good Physical Therapy Plan: PT M-F 1-2 times a day for gait training, transfer training, balance exercies and LE exercises.
[2017-07-22] MEDS: ATORVASTATIN 20 MG TABLET PO SCH (21:16)
[2017-07-22] MEDS: ACETAMINOPHEN 500 MG TABLET PO PRN (21:17)
[2017-07-22] MEDS: TRAMADOL HCL 50 MG TABLET PO PRN (21:17)
[2017-07-22] MEDS: DIPHENHYDRAMINE HCL 25 MG CAPSULE PO PRN (21:17)
[2017-07-23] MEDS: LEVOTHYROXINE SODIUM 50 MCG TABLET PO SCH (06:13)
[2017-07-23] MEDS: PANTOPRAZOLE SODIUM 40 MG TABLET PO SCH (06:13)
[2017-07-23] MEDS: PREDNISONE 5 MG TAB PO SCH (08:20)
[2017-07-23] MEDS: CALCIUM CARB/VITAMIN D 500MG/200IU PO SCH ×2 (11:36→21:05)
[2017-07-23] MEDS: ASPIRIN 81 MG TABEC PO SCH (11:37)
[2017-07-23] MEDS: METOPROLOL TART 25 MG TABLET PO SCH ×2 (11:37→21:05)
[2017-07-23] MEDS: MAGNESIUM OXIDE 400 MG TABLET PO SCH ×2 (11:38→21:06)
[2017-07-23] MEDS: AMIODARONE HCL 200 MG TABLET PO SCH (11:38)
[2017-07-23] MEDS: PATIENT OWN MED: FINASTERIDE 5 MG PO SCH (11:39)
[2017-07-23] MEDS: [UNRECOGNIZED DRUG - OTHER] PO SCH (11:39)
[2017-07-23] MEDS: TRAMADOL HCL 50 MG TABLET PO PRN (21:04)
[2017-07-23] MEDS: ACETAMINOPHEN 500 MG TABLET PO PRN (21:05)
[2017-07-23] MEDS: ATORVASTATIN 20 MG TABLET PO SCH (21:05)
[2017-07-23] MEDS: DIPHENHYDRAMINE HCL 25 MG CAPSULE PO PRN (21:05)
[2017-07-24] MEDS: LEVOTHYROXINE SODIUM 50 MCG TABLET PO SCH (06:22)
[2017-07-24] MEDS: PANTOPRAZOLE SODIUM 40 MG TABLET PO SCH (06:22)
[2017-07-24 08:18] LABS: HEMATOCRIT 29.6 % (42.0-52.0); HEMOGLOBIN 9.2 gm/dl (14.0-18.0); MEAN CELL VOLUME 95.5 fl (81-97); MEAN CORPUSCULAR HGB CONC 31.1 g/dl (32-36); MEAN PLATELET VOLUME 9.5 fl (7.4-10.4); PLATELET COUNT 524 K/uL (130-400); RED CELL DISTRIBUTION WIDTH 14.5 % (11.5-14.5); WHITE BLOOD COUNT W/O DIFF 12.1 K/uL (4.2-12.2)
[2017-07-24 08:20] LABS: MEAN CORPUSCULAR HEMOGLOBIN 29.6 pg (27-33)
[2017-07-24] MEDS: PREDNISONE 5 MG TAB PO SCH (08:26)
[2017-07-24 08:29] LABS: HYPOCHROMIA 1+; PLATELET ESTIMATE INCREASED (NORMAL)
[2017-07-24] MEDS: CALCIUM CARB/VITAMIN D 500MG/200IU PO SCH ×2 (09:27→21:03)
[2017-07-24] MEDS: ASPIRIN 81 MG TABEC PO SCH (09:28)
[2017-07-24] MEDS: METOPROLOL TART 25 MG TABLET PO SCH ×2 (09:28→21:04)
[2017-07-24] MEDS: PATIENT OWN MED: FINASTERIDE 5 MG PO SCH (09:29)
[2017-07-24] MEDS: MAGNESIUM OXIDE 400 MG TABLET PO SCH ×2 (09:29→21:03)
[2017-07-24] MEDS: AMIODARONE HCL 200 MG TABLET PO SCH (09:29)
[2017-07-24] MEDS: [UNRECOGNIZED DRUG - OTHER] PO SCH (09:30)
[2017-07-24] MEDS: ATORVASTATIN 20 MG TABLET PO SCH (21:03)
[2017-07-24] MEDS: DIPHENHYDRAMINE HCL 25 MG CAPSULE PO PRN (21:03)
[2017-07-24] MEDS: TRAMADOL HCL 50 MG TABLET PO PRN (21:04)
[2017-07-24] MEDS: ACETAMINOPHEN 500 MG TABLET PO PRN (21:04)
[2017-07-25] MEDS: PANTOPRAZOLE SODIUM 40 MG TABLET PO SCH (06:05)
[2017-07-25] MEDS: LEVOTHYROXINE SODIUM 50 MCG TABLET PO SCH (06:05)
[2017-07-25] MEDS: MAGNESIUM OXIDE 400 MG TABLET PO SCH ×2 (09:42→22:06)
[2017-07-25] MEDS: CALCIUM CARB/VITAMIN D 500MG/200IU PO SCH ×2 (09:42→22:05)
[2017-07-25] MEDS: METOPROLOL TART 25 MG TABLET PO SCH ×2 (09:42→22:05)
[2017-07-25] MEDS: ASPIRIN 81 MG TABEC PO SCH (09:42)
[2017-07-25] MEDS: [UNRECOGNIZED DRUG - OTHER] PO SCH (09:45)
[2017-07-25] MEDS: PATIENT OWN MED: FINASTERIDE 5 MG PO SCH (09:45)
[2017-07-25] MEDS: AMIODARONE HCL 200 MG TABLET PO SCH (09:46)
[2017-07-25] MEDS: PREDNISONE 5 MG TAB PO SCH (09:48)
--- NOTE | 2017-07-25 10:58 | Physical Therapy Tx Note ---
Physical Therapy Tx Note - Treatment Note Tolerated: Good Total Time Spent With Patient: 30 Physical Therapy Tx Note: Detail (The patient was up in chair when PT arrived. The patient complained of fatigue and L side back pain. The patient ambulated 130 with wheeled walker independently. The patient ambulated on 3 steps with use of railing with supervision for safety only. The patient experienced shortness of breath with activity. The patient also ambulated without device 20 feet x 1 with supervision for safety only. No unsteadiness was noted. The patient completed LE strengthening exercises including manual resisted hip abduction, marching, knee flexion and extension, hip adductor squeezes all x 15 reps. The patient was fatigue following LE exercises. The patient's bedside tray and call light were placed within reach.) Physical Therapy Problem List: Detail (1) Decreased ability to complete prolonged physical activity 2) Moderate Risk for fall per the Tinetti Assessment Tool 3) Decreased LE strength 4) Shortness of breath with ambulating distances.) Physical Therapy Goals: 1) The patient will be independent with ambulation with or without assistive device distances of 200 feet with minimal shortness of breath. 2) The patient will be independent with ambulation with stairclimbing a flight of stairs. 3) The patient's balance will improve 3 to 4 points using the Tinetti Assessment Tool. 4) The patient will tolerate 30 minutes of physical activity with 1 to 2 rest periods. 5) Independent with all bed mobility and transfers. Physical Therapy Plan: PT M-F 1-2 times a day for gait training, transfer training, balance exercies and LE exercises.
--- NOTE | 2017-07-25 14:03 | Occupational Therapy Tx Note ---
Occupational Therapy Tx Note - Treatment Note Tolerated: Good Total Time Spent With Patient: 35 (gait, ther ex) Occupational Therapy Treatment Note: Detail (S: Pt up in chair, feeling tired but ok. O: Sit to stand and amb to rehab gym with 2 wheeled walker Indly. Mild shortness of breath noted but did not require any rest breaks. Pt completed humberto UE reaching/endurance activity with resistive clothespins. Pt amb back to room with 2 wheeled walker Indly. A: Ind with ambulating using 2 wheeled walker, mild shortness of breath continues but improved from last treatment, mild fatigue with UE overhead activity) Occupational Therapy Problem List: Detail (1. Decreased Ind with total body dressing. 2. Decreased Ind with showering. 3. Decreased endurance needed for safe and Ind self care activities.) Occupational Therapy Goals: 1. Pt will be safe and Ind with total body dressing. 2. Pt will be safe and Ind with showering in sitting or standing. 3. Pt will participate in overall endurance activities to allow for safe and Ind return to premorbid activities. Prognosis: Good Occupational Therapy Plan: OT 2-4 days per week to address self cares, functional mobility/endurance activities to allow safe and Ind return home.
[2017-07-25] MEDS ORDERED: MAGNESIUM HYDROXIDE 30 ML UDC PO PRN (15:47)
[2017-07-25] MEDS: ATORVASTATIN 20 MG TABLET PO SCH (22:05)
[2017-07-25] MEDS: MIRTAZAPINE 15 MG TABLET PO SCH (22:07)
[2017-07-25] MEDS: ACETAMINOPHEN 500 MG TABLET PO PRN (22:10)
[2017-07-25] MEDS: SENNOSIDES/DOCUSATE SODIUM UD CAPSULE PO PRN (22:14)
[2017-07-26] MEDS: LEVOTHYROXINE SODIUM 50 MCG TABLET PO SCH (07:37)
[2017-07-26] MEDS: PREDNISONE 5 MG TAB PO SCH (07:37)
[2017-07-26] MEDS: PANTOPRAZOLE SODIUM 40 MG TABLET PO SCH (07:37)
[2017-07-26] MEDS: CALCIUM CARB/VITAMIN D 500MG/200IU PO SCH ×2 (10:12→22:06)
[2017-07-26] MEDS: MAGNESIUM OXIDE 400 MG TABLET PO SCH ×2 (10:12→22:06)
[2017-07-26] MEDS: AMIODARONE HCL 200 MG TABLET PO SCH (10:12)
[2017-07-26] MEDS: METOPROLOL TART 25 MG TABLET PO SCH ×2 (10:12→22:06)
[2017-07-26] MEDS: ASPIRIN 81 MG TABEC PO SCH (10:12)
[2017-07-26] MEDS: [UNRECOGNIZED DRUG - OTHER] PO SCH (10:16)
[2017-07-26] MEDS: SENNOSIDES/DOCUSATE SODIUM UD CAPSULE PO SCH ×2 (10:17→22:07)
[2017-07-26] MEDS: PATIENT OWN MED: FINASTERIDE 5 MG PO SCH (10:17)
[2017-07-26 10:28] LABS: BASO % 0.8 % (0-6); EOS % 2.3 % (0-6); GRAN % 72.9 % (47-80); HEMATOCRIT 32.6 % (42.0-52.0); HEMOGLOBIN 10.3 gm/dl (14.0-18.0); LYMPH % 9.8 % (16-45); MEAN CELL VOLUME 95.6 fl (81-97); MEAN CORPUSCULAR HEMOGLOBIN 30.2 pg (27-33); MEAN CORPUSCULAR HGB CONC 31.6 g/dl (32-36); MEAN PLATELET VOLUME 9.4 fl (7.4-10.4); MONO % 14.2 % (0-9); PLATELET COUNT 576 K/uL (130-400); RED BLOOD COUNT 3.41 M/uL (4.40-5.70); RED CELL DISTRIBUTION WIDTH 14.4 % (11.5-14.5); WHITE BLOOD COUNT W/O DIFF 12.4 K/uL (4.2-12.2)
--- NOTE | 2017-07-26 11:39 | Physical Therapy Tx Note ---
Physical Therapy Tx Note - Treatment Note Tolerated: Good Total Time Spent With Patient: 30 Physical Therapy Tx Note: Detail (The patient ambulated independently with wheeled walker a distance of 130 feet . The patient ambulated on 3 flights of stairs with use of railing with supervision for safety. The patient exhibited increased shortness of breath after ambulating on the stairs. The patient completed LE strengthening exercises seated including: hip adductor squeezes x 11 reps and manual resistive LAQ, knee flexion/extension , hip abduction and marching all x 11-12 reps.) Physical Therapy Problem List: Detail (1) Decreased ability to complete prolonged physical activity 2) Moderate Risk for fall per the Tinetti Assessment Tool 3) Decreased LE strength 4) Shortness of breath with ambulating distances.) Physical Therapy Goals: 1) The patient will be independent with ambulation with or without assistive device distances of 200 feet with minimal shortness of breath. 2) The patient will be independent with ambulation with stairclimbing a flight of stairs. 3) The patient's balance will improve 3 to 4 points using the Tinetti Assessment Tool. 4) The patient will tolerate 30 minutes of physical activity with 1 to 2 rest periods. 5) Independent with all bed mobility and transfers. Physical Therapy Plan: PT M-F 1-2 times a day for gait training, transfer training, balance exercies and LE exercises.
--- NOTE | 2017-07-26 13:16 | Physician Progress Note ---
Subjective - Date Date of Physician Progress Note: 07/26/17 - Subjective Subjective Comment: Per nursing report had blood in stool this morning. Per patient report has not moved bowels in a couple days, when he did stool was very hard, had to bear down to move. Was given MOM and had large BM this am, did have to bear down and noticed blood in stool. No reports of epistaxis or bleeding from incisions. Objective - Vital Signs Vital Signs: Vital Signs - Last 24 Hrs Temp Pulse Resp BP Pulse Ox 07/26/17 12:34 16 07/26/17 08:00 97.9 F 90 18 105/57 98 07/26/17 06:44 15 07/25/17 20:00 98.4 F 68 18 115/68 97 - General General Appearance: Alert, Cooperative, No acute distress Limitations: No limitations - Head Head exam: Atraumatic, Normocephalic - Eye Eye exam: Normal appearance - ENT ENT exam: Normal exam Ear exam: Normal external inspection - Neck Neck exam: Normal inspection - Respiratory Respiratory exam: Normal lung sounds bilaterally - Cardiovascular Cardiovascular Exam: Regular rate, Normal rhythm - GI/Abdominal GI/Abdominal exam: Soft, Normal bowel sounds. negative: Distended, Guarding, Rebound - Rectal Rectal exam: Deferred - exam: Deferred - Extremities Extremities exam: Normal inspection, Normal capillary refill. negative: Calf tenderness, Tenderness - Back Back exam: Reports: Normal inspection - Neurological Neurological exam: Alert - Skin Skin exam: Dry, Warm Type of lesion: Other (b/l groin and left lateral abd incision open to air, small old blister sites now open to air. [address] site[address] No evidence infection) Assessment and Plan - Assessment and Plan (1) Constipation Current Visit: Yes Status: Acute Base Code: K59.00 - CONSTIPATION, UNSPECIFIED Comment: 07/26/17- no known hx hemorrhoids. Blood noted in stool after very large BL - increase senna to 2 tabs BID - constipation related to narcotic pain medications and inactivity (2) Anemia Current Visit: Yes Status: Acute Base Code: D64.9 - ANEMIA, UNSPECIFIED Comment: 07/26/17- blood in stool noted after large BM, CBC today continue CBC Q 72 hours due to acute blood loss anemia (3) DVT prophylaxis Current Visit: Yes Status: Acute Base Code: [id number] - Comment: 07/26/17- pavel scherer. avoid anti coagulation noting risk for penile bleeding. Will attemp to contact cardiothoracic surgeon to confirm. patient ambulating the room and participating in therapy. Results - Labs Result Diagrams: 07/26/17 10:05 07/20/17 06:15 Labs Last 24 Hours: Laboratory Results - last 24 hr 07/26/17 10:05 WBC 12.4 H RBC 3.41 L Hgb 10.3 L Hct 32.6 L MCV 95.6 MCH 30.2 MCHC 31.6 L RDW 14.4 Plt Count 576 H MPV 9.4 Gran % 72.9 Lymphocytes % 9.8 L Monocytes % 14.2 H Eosinophils % 2.3 Basophils % 0.8 DVT/PE Assessment - Risk for VTE Risk for VTE: Yes Risk Level: Low Risk Assessment Date: 07/26/17 Risk Assessment Time: 13:16 VTE Orders Placed or Will Be Placed: Yes - Active Medicaitons Current Medications: Current Medications Acetaminophen (Tylenol 500mg Tab) 1,000 mg PO Q6H PRN PRN Reason: Pain - Moderate (5-7) Last Admin: 07/25/17 22:10 Dose: 1,000 mg Hydrocodone Bitart/Acetaminophen ([place] 5mg/325mg) 1 each PO QHS PRN PRN Reason: Pain - General Albuterol/Ipratropium (Duoneb) 3 ml INH Q6H PRN PRN Reason: SHORTNESS OF BREATH Amiodarone HCl (Pacerone) 100 mg PO DAILY [facility] Last Admin: 07/26/17 10:12 Dose: 100 mg Aspirin (Ecotrin (Ec)) 81 mg PO DAILY [facility] Last Admin: 07/26/17 10:12 Dose: 81 mg Atorvastatin Calcium (Lipitor) 40 mg PO QHS [facility] Last Admin: 07/25/17 22:05 Dose: 40 mg Calcium/Vitamin D (Calcium 500+D Tablet) 1 tab PO BID [facility] Last Admin: 07/26/17 10:12 Dose: 1 tab Diphenhydramine HCl (Benadryl Capsule) 25 mg PO QHS PRN PRN Reason: SLEEP Last Admin: 07/24/17 21:03 Dose: 25 mg Levothyroxine Sodium (Synthroid) 50 mcg PO DAILYTHY [facility] Last Admin: 07/26/17 07:37 Dose: 50 mcg Magnesium Hydroxide (Milk Of Magnesium) 30 ml PO DAILY PRN PRN Reason: INDIGESTION Last Admin: 07/25/17 16:00 Dose: 30 ml Magnesium Oxide (Mag Ox) 400 mg PO BID [facility] Last Admin: 07/26/17 10:12 Dose: 400 mg Metoprolol Tartrate (Lopressor) 12.5 mg PO BID [facility] Last Admin: 07/26/17 10:12 Dose: Not Given Mirtazapine (Remeron) 15 mg PO QHS [facility] Last Admin: 07/25/17 22:07 Dose: 15 mg Pantoprazole Sodium (Protonix) 40 mg PO DAILYAC [facility] Last Admin: 07/26/17 07:37 Dose: 40 mg Patient Own Med: (Ocuvite Generic) 1 each PO DAILY [facility] Last Admin: 07/26/17 10:16 Dose: 1 each Patient Own Med: (Finasteride 5 Mg) 1 each PO DAILY [facility] Last Admin: 07/26/17 10:17 Dose: 1 each Prednisone (Prednisone 5mg) 2.5 mg PO DAILYWM [facility] Last Admin: 07/26/17 07:37 Dose: 2.5 mg Senna/Docusate Sodium (Senna Plus) 2 each PO BID [facility] Last Admin: 07/26/17 10:17 Dose: 2 each Tramadol HCl (Ultram) 100 mg PO QHS PRN PRN Reason: Pain - General Last Admin: 07/24/17 21:04 Dose: 100 mg AMI Plan - Labs Result Diagrams: 07/26/17 10:05 07/20/17 06:15
--- NOTE | 2017-07-26 15:55 | Occupational Therapy Tx Note ---
Occupational Therapy Tx Note - Treatment Note Tolerated: Good Total Time Spent With Patient: 35 (ther ex) Occupational Therapy Treatment Note: Detail (S: Pt tired but reports he showered this morning. O: Sit to stand and amb to rehab gym with CG assist and one rest break, no assistive device. Pt completed humberto UE strengthening/ endurance activity with 1 # wrist weights using shoulder arc, humberto UEs x 2 reps each. Pt amb with walker, outside on sidewalk and then up 3 steps back to room with 1 rest break. A: Pt continues to increase overall endurance, shortness of breath noted today) Occupational Therapy Problem List: Detail (1. Decreased Ind with total body dressing. 2. Decreased Ind with showering. 3. Decreased endurance needed for safe and Ind self care activities.) Occupational Therapy Goals: 1. Pt will be safe and Ind with total body dressing. 2. Pt will be safe and Ind with showering in sitting or standing. 3. Pt will participate in overall endurance activities to allow for safe and Ind return to premorbid activities. Prognosis: Good Occupational Therapy Plan: OT 2-4 days per week to address self cares, functional mobility/endurance activities to allow safe and Ind return home.
[2017-07-26] MEDS: ATORVASTATIN 20 MG TABLET PO SCH (22:06)
[2017-07-26] MEDS: MIRTAZAPINE 15 MG TABLET PO SCH (22:06)
[2017-07-26] MEDS: TRAMADOL HCL 50 MG TABLET PO PRN (22:07)
[2017-07-26] MEDS: DIPHENHYDRAMINE HCL 25 MG CAPSULE PO PRN (22:08)
[2017-07-26] MEDS: ACETAMINOPHEN 500 MG TABLET PO PRN (22:08)
[2017-07-27] MEDS: PANTOPRAZOLE SODIUM 40 MG TABLET PO SCH (06:37)
[2017-07-27] MEDS: LEVOTHYROXINE SODIUM 50 MCG TABLET PO SCH (06:37)
[2017-07-27] MEDS: PREDNISONE 5 MG TAB PO SCH (08:38)
[2017-07-27 08:39] LABS: HEMATOCRIT 32.9 % (42.0-52.0); HEMOGLOBIN 10.1 gm/dl (14.0-18.0); MEAN CELL VOLUME 95.4 fl (81-97); MEAN CORPUSCULAR HGB CONC 30.7 g/dl (32-36); MEAN PLATELET VOLUME 9.7 fl (7.4-10.4); PLATELET COUNT 608 K/uL (130-400); RED BLOOD COUNT 3.45 M/uL (4.40-5.70); RED CELL DISTRIBUTION WIDTH 14.5 % (11.5-14.5); WHITE BLOOD COUNT W/O DIFF 10.1 K/uL (4.2-12.2)
[2017-07-27 08:51] LABS: MEAN CORPUSCULAR HEMOGLOBIN 29.2 pg (27-33)
[2017-07-27 09:11] LABS: PLATELET ESTIMATE INCREASED (NORMAL)
[2017-07-27] MEDS: SENNOSIDES/DOCUSATE SODIUM UD CAPSULE PO SCH (10:22)
[2017-07-27] MEDS: MAGNESIUM OXIDE 400 MG TABLET PO SCH (10:22)
[2017-07-27] MEDS: ASPIRIN 81 MG TABEC PO SCH (10:22)
[2017-07-27] MEDS: AMIODARONE HCL 200 MG TABLET PO SCH (10:22)
[2017-07-27] MEDS: CALCIUM CARB/VITAMIN D 500MG/200IU PO SCH (10:22)
[2017-07-27] MEDS: [UNRECOGNIZED DRUG - OTHER] PO SCH (10:23)
[2017-07-27] MEDS: PATIENT OWN MED: FINASTERIDE 5 MG PO SCH (10:23)
[2017-07-27] MEDS: METOPROLOL TART 25 MG TABLET PO SCH (10:26)
--- NOTE | 2017-07-27 11:47 | Discharge Summary ---
Providers Discharge Summary Date: 07/27/17 Date of admission: 07/19/17 16:11 Expected Date of Discharge: 07/27/17 Attending physician: JOHN MEYER Primary care physician: JACKELYN LYNN M.D. Physical Exam - Vital Signs Vital Signs: Vital Signs - Last 24 Hrs Temp Pulse Resp BP BP Pulse Ox 07/27/17 08:55 97.9 F 82 18 106/56 98 07/26/17 20:00 97.7 F 81 18 130/67 95 07/26/17 12:34 16 - General General Appearance: Alert, Cooperative, No acute distress Limitations: No limitations - Head Head exam: Atraumatic, Normocephalic - Eye Eye exam: Normal appearance - ENT ENT exam: Normal exam Ear exam: Normal external inspection Nasal Exam: Normal inspection Mouth exam: Normal external inspection Teeth exam: Normal inspection Throat exam: Normal inspection - Neck Neck exam: Normal inspection - Respiratory Respiratory exam: Normal lung sounds bilaterally - Cardiovascular Cardiovascular Exam: Regular rate, Normal rhythm - GI/Abdominal GI/Abdominal exam: Soft, Normal bowel sounds. negative: Distended, Guarding, Rebound - Rectal Rectal exam: Deferred - exam: Deferred - Extremities Extremities exam: Normal inspection, Normal capillary refill. negative: Calf tenderness, Tenderness - Back Back exam: Reports: Normal inspection - Neurological Neurological exam: Alert - Skin Skin exam: Dry, Warm Type of lesion: Other (b/l groin and left lateral abd incision open to air, small old blister sites now open to air. [address]. No evidence infection) Hospitalization - Hospitalization Admission Diagnosis: Deconditioning due to AAA - Problem List (1) Weakness Current Visit: Yes Status: Acute Base Code: R53.1 - WEAKNESS Comment: 07/27- PT/OT to help build physical strength and functioning - goals met - discharge home with home PT/OT - follow up with Dr Archuleta as scheduled - continue sennakot twice daily, stop for loose stools-advised goal is for him to avoid bearing down to hard to move bowels - follow up with PCP in 1-2 weeks - keeps abdominal incisions clean and dry, no swimming or baths until cleared by surgeon (2) S/P AAA repair Current Visit: Yes Status: Acute Base Code: Z98.890 - OTHER SPECIFIED POSTPROCEDURAL STATES; Z86.79 - PERSONAL HISTORY OF OTHER DISEASES OF THE CIRCULATORY SYSTEM Comment: 07/27/17- 81 yo male s/p elective AAA repair admitted post op day 9 to our NEO unit for generalized weakness following surgery. - will continue home medications. Hold MTX until follow up visit 08/18. - f/up with Dr. Gladis Sanchez M.D. Aug 18 as scheduled - VS remained stable during admit - PT/OT during admit with goals met at time of discharge - noted weight loss since admit, has been drinking Ensure and Pease- advised to continue these supplements at home (3) Anemia Current Visit: Yes Status: Acute Base Code: D64.9 - ANEMIA, UNSPECIFIED Comment: 07/27/17- blood in stool noted after large BM, no obvious sign of bleeding - CBC 10.1 today, steadily improving - recheck per PCP/surgeon recommendations (4) Constipation Current Visit: Yes Status: Acute Base Code: K59.00 - CONSTIPATION, UNSPECIFIED Comment: 07/27/17- no known hx hemorrhoids. Blood noted in stool after very large BM - increase senna to 2 tabs BID and continue at discharge - constipation related to narcotic pain medications and inactivity (5) DVT prophylaxis Current Visit: Yes Status: Acute Base Code: [id number] - Comment: 07/27/17- asa, pavel piersone. avoid anti coagulation noting risk for penile bleeding. Will attemp to contact cardiothoracic surgeon to confirm. patient ambulating the room and participating in therapy. (6) Full code status Current Visit: Yes Status: Acute Base Code: Z78.9 - OTHER SPECIFIED HEALTH STATUS Comment: 07/27/17- pt is full code - Hospitalization Course Disposition: Home Health Service Reason For Discharge/Transfer: Medical Stability Hospital Course: 81 yo male admitted to our NEO unit following AAA repair 07/11/17. PMHx of RA, TIA, paroxysmal afib, hypercholesterolemia, BPH, and bilateral inguinal hernia repair. Patient had CT imaging of abdomen prior to inguinal hernia repair. This is when patient's AAA was discovered. This was monitored for a year, however, noting growth from 3.6 to 4.5 cm & juxtarenal, patient and choose to have elective repair completed. 07/[address] Gladis Sanchez for routine open repair of AAA. During the procedure, patient experienced significant blood loss. This was replaced wth cell save but post op coagulopathy developed. This was treated with FFP. Patient was extubated after surgery but required reintubation in pacu. He was transferred to ICU on the ventilator post op. Initially, he was managed w/ crystal volume replacement, required transfusion to support BP. POD1: required additional transfusion of PRC, extubated but continued to require increased O2. Switched to high flow oxygen. Gallego d/c'd. Day 2: diuresis, reglan for gastric mobility, CLD. #3: removal of chest tubes, resp status stable, high flow weaned to NC, diuresis increased, activity also increased. #4: drop in hgb , hypoxia improved (on 2 L NC), diuresis continued. #5: bowel movement. transferred to step down. #6: diuresis, electrolytes replaced. #7: oxygen weaned , tolerating RA. Diuretic held, albumin given. #8: ready for NEO. Patient retired. Lives at home with . Prior to surgery, patients independent with ADLS. He assisted with yard work and house chores. Lives in a two story home. Three steps into the house with railing. PCP: Dr. Lynn Cardiothoracic surgeon: Dr. Gladis Sanchez- f/up visit 08/18 Abnormal Labs: Abnormal Lab Results 07/20/17 07/20/17 07/21/17 Range/Units 06:15 06:15 07:55 WBC 13.4 H (4.2-12.2) K/uL RBC 2.81 L 2.83 L (4.40-5.70) M/uL Hgb 8.5 L 8.4 L (14.0-18.0) gm/dl Hct 26.9 L 27.1 L (42.0-52.0) % MCHC 31.6 L 31.0 L (32-36) g/dl RDW 14.7 H (11.5-14.5) % Plt Count 444 H (130-400) K/uL Lymphocytes % (16-45) % Monocytes % (0-9) % Lymphocytes 15.0 L 11.0 L (16-45) % Monocytes (0-9) % Eosinophil Count 7.0 H (0-6) % Potassium 3.2 L (3.5-5.1) mmol/L Total Bilirubin 1.86 H (0.2-1.3) mg/dL Total Protein 5.8 L (6.3-8.2) gm/dL Albumin 3.3 L (3.5-5.0) gm/dL 07/24/17 07/26/17 07/27/17 Range/Units 08:14 10:05 08:15 WBC 12.4 H (4.2-12.2) K/uL RBC 3.10 L 3.41 L 3.45 L (4.40-5.70) M/uL Hgb 9.2 L 10.3 L 10.1 L (14.0-18.0) gm/dl Hct 29.6 L 32.6 L 32.9 L (42.0-52.0) % MCHC 31.1 L 31.6 L 30.7 L (32-36) g/dl RDW (11.5-14.5) % Plt Count 524 H 576 H 608 H (130-400) K/uL Lymphocytes % 9.8 L (16-45) % Monocytes % 14.2 H (0-9) % Lymphocytes 11.0 L (16-45) % Monocytes 13.0 H (0-9) % Eosinophil Count (0-6) % Potassium (3.5-5.1) mmol/L Total Bilirubin (0.2-1.3) mg/dL Total Protein (6.3-8.2) gm/dL Albumin (3.5-5.0) gm/dL Condition at Discharge: (2) Stable Discharge Medications - Discharge Medications Prescriptions: Mirtazapine [Remeron] 15 mg PO QHS #30 tab Tramadol HCl [Ultram] 100 mg PO QHS PRN #15 tab PRN Reason: Pain - General Sennosides/Docusate Sodium [Senna Plus] 2 each PO BID #120 tab Home Medications: Ambulatory Orders Acetaminophen [Tylenol 325Mg] 650 mg PO TITRATE PRN 05/05/14 [Last Taken Unknown ] Aspirin Chewable 81 mg PO DAILY 05/05/14 [Last Taken Unknown] Beta-Carotene(A)-Vits C,E/Mins [Vision Vitamins] 1 tab PO DAILY 05/05/14 [Last Taken Unknown] Calc/D3/Mag/Zn/Omar/Guillaume/Marquette [Calcium 600 mg Plus Vit D Tab] 1 each PO DAILY 05/05/14 [Last Taken Unknown] Finasteride [Proscar] 5 mg PO DAILY 05/05/14 [Last Taken Unknown] Fish Oil/Dha/Epa [Fish Oil 1,200 mg Fish Oil] 1 each PO ASDIR 05/05/14 [Last Taken Unknown] Folic Acid 1 mg PO DAILY 05/05/14 [Last Taken Unknown] Methotrexate Sodium [Rheumatrex] 20 mg PO ASDIR 05/05/14 [Last Taken Unknown] Multivitamin with Minerals [Icaps Plus] 1 each PO DAILY 05/05/14 [Last Taken Unknown] Prednisone 2.5 mg PO DAILY 05/05/14 [Last Taken Unknown] Amiodarone HCl [Pacerone] 200 mg PO ASDIR 05/12/15 [Last Taken Unknown] Omeprazole 20 mg PO DAILY 05/12/15 [Last Taken Unknown] Sulfacetamide Sodium [Bleph10] 2 drop AFFEYE Q6HR #15 ml 05/12/15 [Last Taken Unknown] Acetaminophen [Tylenol 500Mg Tab] 1,000 mg PO Q6H PRN 07/27/17 [Last Taken Unknown] Amiodarone HCl [Pacerone] 100 mg PO DAILY 07/27/17 [Last Taken Unknown] Aspirin Enteric-Coated [Ecotrin (EC)] 81 mg PO DAILY 07/27/17 [Last Taken Unknown] Ipratropium/Albuterol [Duoneb] 3 ml INH Q6H PRN 07/27/17 [Last Taken Unknown] Levothyroxine Sodium [Synthroid] 50 mcg PO DAILYTHY 07/27/17 [Last Taken Unknown ] Magnesium Oxide [Mag Ox] 400 mg PO BID tab 07/27/17 [Last Taken Unknown] Metoprolol Tartrate [Lopressor] 12.5 mg PO BID tab 07/27/17 [Last Taken Unknown ] Mirtazapine [Remeron] 15 mg PO QHS #30 tab 07/27/17 [Last Taken Unknown] Sennosides/Docusate Sodium [Senna Plus] 2 each PO BID #120 tab 07/27/17 [Last Taken Unknown] Tramadol HCl [Ultram] 100 mg PO QHS PRN #15 tab 07/27/17 [Last Taken Unknown] Discharge Plan - Discharge Instructions Activity at Discharge: As Per Physical Therapy, Resume Usual Activities As Tolerated Diet at Discharge: Low Fat, Low Cholesterol, Low Salt Diet Wound Primary Dressing Type: keep abdominal wounds clean and dry Additional Instructions: Follow Up appointments: 08/18/17 9:00 AM abdominal xray at [facility] 08/18/17 9:[address] Sanchez, [facility] [address]. [phone]
--- NOTE | 2017-07-27 12:25 | Rehab Discharge Summary ---
Patient Information - Patient Information Diagnosis: Deconditioning due to AAA Ordered Treatment: OT Evaluate and Treat Surgery: Yes (AAA repair 07/11/17) Past Medical/Surgical Hx: PAST MEDICAL/SURGICAL HISTORY Past Surgical History TURPx2; inguinal hernia repair; right foot sx february 28, AAA repair, cateract removal left eye , hernia surgeryx3, arthritis nodules removed from hands, right foot rebuilt, trigger finger release, callous removal PMH - Respiratory Hx Respiratory Disorders Yes Hx Asthma No Hx Bronchitis No Hx Chronic Obstructive Yes Pulmonary Disease (COPD) Hx Dyspnea No Hx Pneumonia Yes: oct 29 Hx Pulmonary Embolism No Hx Sleep Apnea No Hx Tuberculosis No Hx of CPAP No PMH - Cardiovascular Hx Cardiovascular Disorders Yes Hx Abnormal EKG Yes: afib Hx Cardiac Catheterization No Hx Chest Pain No Hx Congestive Heart Failure No Hx Deep Vein Thrombosis No Hx Edema No Hx Heart Attack No Hx Hypertension No Hx Hypotension No Hx Irregular Heartbeat Yes Hx Palpitations No Hx Pacemaker/Defibrillator No Hx Vascular Disease No Hx Transient Ischemic Attacks Yes (TIA) Comment: AAA repair 2016 PMH - Neuro Hx Neurological Disorders Yes Hx Brain Tumor No Hx Cerebrovascular Accident No Hx Dementia No Hx Dizziness No Hx Headaches No Hx Neuropathy No Hx Parkinson's Disease No Hx Seizures No Hx Speech Problem No Hx Syncope No Hx Transient Ischemic Attacks Yes (TIA) Comment: very [place]; has hearing aides PMH - GI Hx Gastrointestinal Disorders Yes Hx Abdominal Pain No Hx Celiac Disease No Hx Crohn's Disease No Hx Diverticulitis No Hx Gastrointestinal Bleed No Hx Gastroesophageal Reflux Yes: meds Hx Hepatitis/Jaundice No Hx Hiatal Hernia No Hx Irritable Bowel No Hx Liver Disease No Hx Nausea/Vomiting No Hx Obstructive Bowel No Hx Pancreatitis No Hx Rectal Bleeding No Hx Ulcer No Hx Weight Loss/Weight Gain No PMH - Hx Genitourinary Disorders Yes Hx Bladder Problem Yes Hx Dialysis No Hx Kidney Stones No Hx Prostate Problems Yes: turp Hx Renal Disease No Hx Urinary Tract Infection No PMH - Endocrine Hx Endocrine Disorders Yes Hx Diabetes No Hx Thyroid Disease Yes PMH - Musculoskeletal Hx Musculoskeletal Disorders Yes Hx Arthritis Yes: ra Hx Back Injury No Hx Fibromyalgia No Hx Gout No Hx Musculoskeletal Disease No Hx Osteoporosis Yes: Prolia injection Comment: RA PMH - Psych Hx Psychiatric Problems No PMH - Hematology/Oncology Hx Hematology/Oncology Yes Disorders Hx Anemia Yes Hx Blood Disorders No Hx Bruising Yes Hx Cancer Yes: skin cancer Hx Chemotherapy No Hx Radiation Therapy No Hx Clotting Problems No Hx Sickle Cell Disease No Hx Unexplained Bleeding No Hx Blood Transfusion Reaction No Comment: cannot use aspirin or Xalarto.. prostate; Premorbid Status: Detail (Pt lives with spouse in a 2 story house with basement. He has 3 steps and 1 handrailing at the entrance, his bedroom and full bathroom are on the second floor. He has a walk in shower, no grab bar or seat. He usually stands to shower and was Ind with all ADLs, yard work, grilling and sharing home mgmt. He has elevated toilet seats, no grab bars. He ambulated without an assistive device but has a 2 wheeled walker. He plays in a band as well.) Social History: Detail (Supportive and daughter.) Precautions: [place], Fall Subjective Information - Subjective Information Per Patient Objective Data - Pain Pain Present: No - Mental Status Patient Orientation: Oriented x3 - Visual Perception Appears within normal limits for therapeutic activities (Pt wears glasses at all times.) - ROM Within normal limits (Bebeto UE AROM WNL although he has deformities in bebeto wrists and hands due to arthritis.) - Strength/Tone Within normal limits (Bebeto UE MME 5/5, fatigue level has improved although he continues to have shortness of breath with sustained activities.) - Coordination Appears within normal limits for therapeutic activities - Bed Mobility Independent - Transfers Independent - Balance Balance Sitting: Good Balance Standing: Good - Sensation Intact - Gait Detail (Pt ambulating household distances with 2 wheeled walker and without an assistive device although he becomes more easily fatigued without the walker.) - ADL's/IADL's Detail (Pt Ind with showering in sitting and standing, Ind with total body dressing and all self care activities.) Therapy Assessment - Therapy Assessment Detail (Pt is safe and Ind with all functional mobility, self cares/ADLs. He continues with decreased endurance although this is improving.) Problem List - Problem List Physical Therapy Problem List: Detail (1) Decreased ability to complete prolonged physical activity 2) Moderate Risk for fall per the Tinetti Assessment Tool 3) Decreased LE strength 4) Shortness of breath with ambulating distances.) Occupational Therapy Problem List: Detail (1. Decreased Ind with total body dressing. 2. Decreased Ind with showering. 3. Decreased endurance needed for safe and Ind self care activities.) Goals - Goals Physical Therapy Goals: 1) The patient will be independent with ambulation with or without assistive device distances of 200 feet with minimal shortness of breath. 2) The patient will be independent with ambulation with stairclimbing a flight of stairs. 3) The patient's balance will improve 3 to 4 points using the Tinetti Assessment Tool. 4) The patient will tolerate 30 minutes of physical activity with 1 to 2 rest periods. 5) Independent with all bed mobility and transfers. Occupational Therapy Goals: Goals Met: 1. Pt will be safe and Ind with total body dressing. 2. Pt will be safe and Ind with showering in sitting or standing. 3. Pt will participate in overall endurance activities to allow for safe and Ind return to premorbid activities. Prognosis - Prognosis Good Plan - Plan Physical Therapy Plan: PT M-F 1-2 times a day for gait training, transfer training, balance exercies and LE exercises. Occupational Therapy Plan: Pt is discharging home with and home OT/PT today.
--- NOTE | 2017-07-27 14:24 | Rehab Discharge Summary ---
Patient Information - Patient Information Diagnosis: Deconditioning due to AAA Ordered Treatment: OT Evaluate and Treat Surgery: Yes (AAA repair 07/11/17) Past Medical/Surgical Hx: PAST MEDICAL/SURGICAL HISTORY Past Surgical History TURPx2; inguinal hernia repair; right foot sx february 28, AAA repair, cateract removal left eye , hernia surgeryx3, arthritis nodules removed from hands, right foot rebuilt, trigger finger release, callous removal PMH - Respiratory Hx Respiratory Disorders Yes Hx Asthma No Hx Bronchitis No Hx Chronic Obstructive Yes Pulmonary Disease (COPD) Hx Dyspnea No Hx Pneumonia Yes: oct 29 Hx Pulmonary Embolism No Hx Sleep Apnea No Hx Tuberculosis No Hx of CPAP No PMH - Cardiovascular Hx Cardiovascular Disorders Yes Hx Abnormal EKG Yes: afib Hx Cardiac Catheterization No Hx Chest Pain No Hx Congestive Heart Failure No Hx Deep Vein Thrombosis No Hx Edema No Hx Heart Attack No Hx Hypertension No Hx Hypotension No Hx Irregular Heartbeat Yes Hx Palpitations No Hx Pacemaker/Defibrillator No Hx Vascular Disease No Hx Transient Ischemic Attacks Yes (TIA) Comment: AAA repair 2016 PMH - Neuro Hx Neurological Disorders Yes Hx Brain Tumor No Hx Cerebrovascular Accident No Hx Dementia No Hx Dizziness No Hx Headaches No Hx Neuropathy No Hx Parkinson's Disease No Hx Seizures No Hx Speech Problem No Hx Syncope No Hx Transient Ischemic Attacks Yes (TIA) Comment: very [place]; has hearing aides PMH - GI Hx Gastrointestinal Disorders Yes Hx Abdominal Pain No Hx Celiac Disease No Hx Crohn's Disease No Hx Diverticulitis No Hx Gastrointestinal Bleed No Hx Gastroesophageal Reflux Yes: meds Hx Hepatitis/Jaundice No Hx Hiatal Hernia No Hx Irritable Bowel No Hx Liver Disease No Hx Nausea/Vomiting No Hx Obstructive Bowel No Hx Pancreatitis No Hx Rectal Bleeding No Hx Ulcer No Hx Weight Loss/Weight Gain No PMH - Hx Genitourinary Disorders Yes Hx Bladder Problem Yes Hx Dialysis No Hx Kidney Stones No Hx Prostate Problems Yes: turp Hx Renal Disease No Hx Urinary Tract Infection No PMH - Endocrine Hx Endocrine Disorders Yes Hx Diabetes No Hx Thyroid Disease Yes PMH - Musculoskeletal Hx Musculoskeletal Disorders Yes Hx Arthritis Yes: ra Hx Back Injury No Hx Fibromyalgia No Hx Gout No Hx Musculoskeletal Disease No Hx Osteoporosis Yes: Prolia injection Comment: RA PMH - Psych Hx Psychiatric Problems No PMH - Hematology/Oncology Hx Hematology/Oncology Yes Disorders Hx Anemia Yes Hx Blood Disorders No Hx Bruising Yes Hx Cancer Yes: skin cancer Hx Chemotherapy No Hx Radiation Therapy No Hx Clotting Problems No Hx Sickle Cell Disease No Hx Unexplained Bleeding No Hx Blood Transfusion Reaction No Comment: cannot use aspirin or Xalarto.. prostate; Premorbid Status: Detail (Pt lives with spouse in a 2 story house with basement. He has 3 steps and 1 handrailing at the entrance, his bedroom and full bathroom are on the second floor. He has a walk in shower, no grab bar or seat. He usually stands to shower and was Ind with all ADLs, yard work, grilling and sharing home mgmt. He has elevated toilet seats, no grab bars. He ambulated without an assistive device but has a 2 wheeled walker. He plays in a band as well.) Social History: Detail (Supportive and daughter.) Precautions: [place], Fall Subjective Information - Subjective Information Per Patient (The patient continued to complain of fatigue with physical activity but less then initially. The patient had occasional complaints of lower back pain.) Objective Data - Mental Status Patient Orientation: Oriented x3 - ROM Within normal limits (LE AROM is WNL.) - Strength/Tone Within normal limits (The patient's LE strength is generally 4+ to 5/5.) - Bed Mobility Independent - Transfers Independent (The patient was independent with sit to and from stand transfer, toilet transfer.) - Balance Balance Sitting: Good Balance Standing: Good (The patient's balance using the Tinetti Assessment Tool was 25/28 ( Initially 20/28). The patient is now in the low risk for falls category.) - Gait Detail (The patient ambulated independently without device 300 feet plus. The patient also ambulated independently with wheeled walker 300 feet plus. The patient ambulated on 3 flights of stairs with supervision for safety only. Shortness of breath was noted with ambulation on stairs. The patient no longer has shortness of breath with ambulation.) Therapy Assessment - Therapy Assessment Detail (The patient has improved strength, balance and ability to complete prolonged physical activity. PT recommends the patient can ambulate without device household distances and use walker when ambulating distances or in the community or when feeling unsteady. Ongoing home PT is recommended to assess the patient's safety in home environment.) Patient Education - Patient Education Teaching Topic: Exercise/Activity (The patient was instructed in LE strengthening exercises.) Response: Return Demonstration Teaching Method: Discussion, Demonstration, Handout Teaching Recipient: Patient Barriers To Learning: Age Related Problem List - Problem List Physical Therapy Problem List: Detail (1) Decreased ability to complete prolonged physical activity 2) Moderate Risk for fall per the Tinetti Assessment Tool 3) Decreased LE strength 4) Shortness of breath with ambulating distances.) Occupational Therapy Problem List: Detail (1. Decreased Ind with total body dressing. 2. Decreased Ind with showering. 3. Decreased endurance needed for safe and Ind self care activities.) Goals - Goals Physical Therapy Goals: GOALS MET: 1) The patient will be independent with ambulation with or without assistive device distances of 200 feet with minimal shortness of breath. 2) The patient will be independent with ambulation with stairclimbing a flight of stairs. 3) The patient's balance will improve 3 to 4 points using the Tinetti Assessment Tool. 4) The patient will tolerate 30 minutes of physical activity with 1 to 2 rest periods. 5) Independent with all bed mobility and transfers. Occupational Therapy Goals: Goals Met: 1. Pt will be safe and Ind with total body dressing. 2. Pt will be safe and Ind with showering in sitting or standing. 3. Pt will participate in overall endurance activities to allow for safe and Ind return to premorbid activities. Plan - Plan Physical Therapy Plan: The patient discharged to home. The patient is to receive home PT/OT. Occupational Therapy Plan: Pt is discharging home with and home OT/PT today.
== END 2017-07-27 13:50 | disposition home health service (06) | DRG 948 ==
LOC: MEDSURG 07-19 16:11
PROVIDERS: ADMIT Family Medicine; ATTEND Family Medicine
DX: R53.1 Weakness (principal); D64.9 Anemia, unspecified; Z78.9 Other specified health status; M06.9 Rheumatoid arthritis, unspecified; Z86.73 Personal history of transient ischemic attack (TIA), and cerebral infarction without residual deficits; J44.9 Chronic obstructive pulmonary disease, unspecified; I48.0 Paroxysmal atrial fibrillation; Z79.01 Long term (current) use of anticoagulants; E78.00 Pure hypercholesterolemia, unspecified
CPT/HCPCS: 80053; 85025; 85027; 97110; 97116; 97165; 97530; 97535; 99306; 99309; 99316; J7512

== ENCOUNTER 2017-11-19 15:41 | Emergency (ER) | payer MEDICARE, BC ==
[2017-11-19] MEDS ORDERED: 0.9 % SODIUM CHLORIDE 1000ML 1,000 ML IV PRN (16:46)
--- NOTE | 2017-11-19 17:01 | Emergency Department Record ---
History of Present Illness - General Chief Complaint: General Stated Complaint: VOMITING,NO APPETITE,DISORIENTED Time Seen by Provider: 11/19/17 16:18 Source: Patient, RN notes reviewed Mode of Arrival: Wheelchair - History of Present Illness Initial comments: confusion this afternoon and vomited times one with nausea and he is weak. PMH of TIA - [place] Coma Scale Eye Response: (4) Open spontaneously Motor Response: (6) Obeys commands Verbal Response: (5) Oriented [place] Total: 15 - Related Data Home Medications Medication Instructions Recorded Confirmed Last Taken Abatacept/Maltose [Orencia] 750 mg IV MONTHLY 11/19/17 11/19/17 11/14/17 Lactulose 10 gm PO ASDIR 11/19/17 11/19/17 11/19/17 Previous Rx's Medication Instructions Recorded Sulfacetamide Sodium [Bleph10] 2 drop AFFEYE Q6HR #15 ml 05/12/15 Acetaminophen [Tylenol 500Mg Tab] 1,000 mg PO Q6H PRN 07/27/17 Amiodarone HCl [Pacerone] 100 mg PO DAILY 07/27/17 Aspirin Enteric-Coated [Ecotrin 81 mg PO DAILY 07/27/17 (EC)] Ipratropium/Albuterol [Duoneb] 3 ml INH Q6H PRN 07/27/17 Levothyroxine Sodium [Synthroid] 50 mcg PO DAILYTHY 07/27/17 Magnesium Oxide [Mag Ox] 400 mg PO BID tab 07/27/17 Metoprolol Tartrate [Lopressor] 12.5 mg PO BID tab 07/27/17 Mirtazapine [Remeron] 15 mg PO QHS #30 tab 07/27/17 Sennosides/Docusate Sodium [Senna 2 each PO BID #120 tab 07/27/17 Plus] Tramadol HCl [Ultram] 100 mg PO QHS PRN #15 tab 07/27/17 Cephalexin [Keflex] 500 mg PO Q6H #40 capsule 11/19/17 Cephalexin [Keflex] 500 mg PO QID #40 cap 11/19/17 Allergies Allergy/AdvReac Type Severity Reaction Status Date / Time amoxicillin AdvReac NAUSEA AND Verified 11/19/17 16:03 VOMITING aspirin AdvReac BRUISING Verified 11/19/17 16:03 diphenhydramine AdvReac BLURRED Verified 11/19/17 16:03 VISION rivaroxaban [From Xarelto] AdvReac BRUISING Verified 11/19/17 16:03 sotalol AdvReac CHEST PAIN Verified 11/19/17 16:03 Travel Screening - Travel/Exposure Within Last 30 Days Have you traveled within the last 30 days?: No - Travel/Exposure Within Last Year Have you traveled outside the [place] in the last year?: No - Additonal Travel Details Have you been exposed to anyone with a communicable illness?: No - Travel Symptoms Symptom Screening: None Review of Systems Reviewed: No additional complaints except as noted below Constitutional: Reports: As per HPI. Denies: Chills, Fever, Malaise, Night sweats, Weakness, Weight change Eyes: Reports: As per HPI. Denies: Eye discharge, Eye pain, Photophobia, Vision change ENT: Reports: As per HPI, Congestion. Denies: Dental pain, Ear pain, Epistaxis , Hearing loss, Throat pain Respiratory: Reports: As per HPI, Cough. Denies: Dyspnea, Hemoptysis, Stridor, Wheezes Cardiovascular: Reports: As per HPI. Denies: Arrhythmia, Chest pain, Dyspnea on exertion, Edema, Murmurs, Orthopnea, Palpitations, Paroxysmal nocturnal dyspnea, Rheumatic Fever, Syncope Endocrine: Reports: As per HPI. Denies: Fatigue, Heat or cold intolerance, Polydipsia, Polyuria Gastrointestinal: Reports: As per HPI. Denies: Abdominal pain, Constipation, Diarrhea, Hematemesis, Hematochezia, Melena, Nausea, Vomiting Genitourinary: Reports: As per HPI. Denies: Dysuria, Frequency, Hematuria, Incontinence, Retention, Testicular pain, Testicular mass, Urgency Musculoskeletal: Reports: As per HPI. Denies: Arthralgia, Back pain, Gout, Joint swelling, Myalgia, Neck pain Skin: Reports: As per HPI. Denies: Bruising, Change in color, Change in hair/ nails, Lesions, Pruritus, Rash Neurological: Reports: As per HPI. Denies: Abnormal gait, Confusion, Headache, Numbness, Paresthesias, Seizure, Tingling, Tremors, Vertigo, Weakness Psychiatric: Reports: As per HPI. Denies: Anxiety, Auditory hallucinations, Depression, Homicidal thoughts, Suicidal thoughts, Visual hallucinations Hematological/Lymphatic: Reports: As per HPI. Denies: Anemia, Blood Clots, Easy bleeding, Easy bruising, Swollen glands Past Medical History - SOCIAL HISTORY Smoking Status: Former smoker Alcohol Use: None Drug Use: None - RESPIRATORY Hx Respiratory Disorders: Yes Hx Asthma: No Hx Bronchitis: No Hx COPD: Yes Hx Dyspnea: No Hx Pneumonia: Yes (oct 29) Hx Pulmonary Embolism: No Hx Sleep Apnea: No Hx Tuberculosis: No Hx of CPAP: No - CARDIOVASCULAR Hx Cardio Disorders: Yes Hx Abnormal EKG: Yes (afib) Hx Cardiac Cath: No Hx Chest Pain: No Hx CHF: No Hx Deep Vein Thrombosis: No Hx Edema: No Hx Heart Attack: No Hx Hypertension: No Hx Hypotension: No Hx Irregular Heartbeat: Yes Hx Palpitations: No Hx Pacemaker/Defib: No Hx Vascular Disease: No Comment:: AAA repair 2017 - NEURO Hx Neuro Disorders: Yes Hx Seizures: No - GI Hx GI Disorders: Yes Hx Abdominal Pain: No Hx Celiac Disease: No Hx Crohn's Disease: No Hx Diverticulitis: No Hx GI Bleed: No Hx Reflux: Yes (meds) Hx Hepatitis/Jaundice: No Hx Hiatal Hernia: No Hx Irritable Bowel: No Hx Liver Disease: No Hx Nausea/Vomiting: No Hx Obstructive Bowel: No Hx Pancreatitis: No Hx Rectal Bleeding: No Hx Ulcer: No Hx Wt Loss/Wt Gain: No Hx of Polyps: Yes - Hx Genitourinary Disorders: Yes Hx Bladder Problem: Yes Hx Dialysis: No Hx Kidney Stones: No Hx Prostate Problems: Yes (turp) Hx Renal Disease: No Hx UTI: No - ENDOCRINE Hx Endocrine Disorders: Yes Hx Diabetes: No Hx Thyroid Disease: Yes - MUSCULOSKELETAL Hx Musculoskeletal Disorders: Yes Hx Arthritis: Yes (ra) Hx Back Injury: No Hx Fibromyalgia: No Hx Gout: No Hx Musculoskeletal Disease: No Hx Osteoporosis: Yes (Prolia injection) Comment:: RA - PSYCH Hx Psych Problems: No - HEMATOLOGY/ONCOLOGY Hx Hematology/Oncology Disorders: Yes Hx Anemia: Yes Hx Blood Disorders: No Hx Bruising: Yes Hx Cancer: Yes (skin cancer) Hx Chemotherapy: No Hx Radiation Therapy: No Hx Clotting Problems: No Hx Sickle Cell Disease: No Hx Unexplained Bleeding: No Hx Blood Transfusions: Yes Hx Blood Transfusion Reaction: No Comment:: cannot use aspirin or Xalarto.. prostate; Family Medical History Any Significant Family History?: Yes Family Hx Comment (NOT TO BE USED IN PLACE OF ITEMS BELOW): mother had MS Hx Cancer: Brother/Sister Hx Diabetes: Mother Hx Heart Disease: Brother/Sister Hx Stroke: Mother Physical Exam - General General Appearance: Alert, Oriented x3, Cooperative, No acute distress (answers questions appropriately) - Head Head exam: Normal inspection - Eye Eye exam: Normal appearance, PERRL Pupils: Normal accommodation - ENT ENT exam: Normal exam, Mucous membranes moist, Normal external ear exam, Normal orophraynx, TM's normal bilaterally Ear exam: Normal external inspection. negative: External canal tenderness Nasal Exam: Normal inspection. negative: Discharge, Sinus tenderness Mouth exam: Normal external inspection, Tongue normal Teeth exam: Normal inspection. negative: Dental caries Throat exam: Normal inspection. negative: Tonsillar erythema, Tonsillar exudate - Neck Neck exam: Normal inspection, Full ROM. negative: Tenderness - Respiratory Respiratory exam: Normal lung sounds bilaterally. negative: Respiratory distress - Cardiovascular Cardiovascular Exam: Regular rate, Normal rhythm, Normal heart sounds - GI/Abdominal GI/Abdominal exam: Soft, Normal bowel sounds. negative: Tenderness - Rectal Rectal exam: Deferred - exam: Deferred - Extremities Extremities exam: Normal inspection, Full ROM, Normal capillary refill. negative: Tenderness - Back Back exam: Reports: Normal inspection, Full ROM. Denies: Muscle spasm, Rash noted, Tenderness - Neurological Neurological exam: Alert, Normal gait, Oriented X3, Reflexes normal - Psychiatric Psychiatric exam: Normal affect, Normal mood - Skin Skin exam: Dry, Intact, Normal color, Warm Course Vital Signs 11/19/17 16:03 Temperature 99.7 F H Pulse Rate 88 Respiratory 18 Rate Blood Pressure 123/67 Medical Decision Making - Lab Data Result diagrams: 11/19/17 16:50 11/19/17 16:50 Disposition Clinical Impression: Weakness, Bronchitis Disposition: Home, Self-Care Condition: (1) Good Instructions: Acute Bronchitis (ED) Additional Instructions: follow up with family in 3 days Prescriptions: Cephalexin [Keflex] 500 mg PO QID #40 cap Cephalexin [Keflex] 500 mg PO Q6H #40 capsule Forms: Patient Portal Access Quality - Quality Measures Quality Measures: N/A - Blood Pressure Screening Does Patient Have Any of the Following: No Blood Pressure Classification: Pre-Hypertensive BP Reading Systolic Measurement: 123 Diastolic Measurement: 67 Screening for High Blood Pressure: < Pre-Hypertensive BP, F/U Documented > [ G8950] Pre-Hypertensive Follow-up Interventions: Referral to alternative/primary care provider.
[2017-11-19 17:30] LABS: BASO % 0.2 % (0-6); EOS % 0.1 % (0-6); GRAN % 78.1 % (47-80); HEMOGLOBIN 13.7 gm/dl (14.0-18.0); LYMPH % 11.2 % (16-45); MEAN CELL VOLUME 90.7 fl (81-97); MEAN CORPUSCULAR HEMOGLOBIN 28.9 pg (27-33); MEAN CORPUSCULAR HGB CONC 31.9 g/dl (32-36); MEAN PLATELET VOLUME 10.1 fl (7.4-10.4); MONO % 10.4 % (0-9); PLATELET COUNT 266 K/uL (130-400); RED BLOOD COUNT 4.74 M/uL (4.40-5.70); RED CELL DISTRIBUTION WIDTH 17.4 % (11.5-14.5); WHITE BLOOD COUNT W/O DIFF 16.4 K/uL (4.2-12.2)
[2017-11-19 17:37] LABS: BLOOD UREA NITROGEN 18 mg/dL (8-23); CREATININE 0.9 mg/dL (0.7-1.2); EST GLOMERULAR FILTRATION RATE > 60 mL/min
[2017-11-19 17:40] LABS: GLUCOSE,RANDOM 105 mg/dL (74-109)
[2017-11-19] MEDS ORDERED: ACETAMINOPHEN 500 MG TABLET PO ONE (17:41)
[2017-11-19 17:46] LABS: CKMB 1.1 ng/mL (<6.73)
[2017-11-19 17:55] LABS: THYROID STIMULATING HORMONE 1.15 uIU/mL (0.270-4.20)
[2017-11-19 18:02] LABS: URINE APPEARANCE CLEAR; URINE BILIRUBIN NEGATIVE (NEGATIVE); URINE BLOOD TRACE-I (NEGATIVE); URINE COLOR YELLOW; URINE GLUCOSE (UA) NEGATIVE (NEGATIVE); URINE KETONE NEGATIVE (NEGATIVE); URINE LEUKOCYTE ESTERASE NEGATIVE (NEGATIVE); URINE NITRITE NEGATIVE (NEGATIVE); URINE PROTEIN TRACE (NEGATIVE); URINE UROBILINOGEN 0.2 E.U./dL (0.20 - 1.00)
[2017-11-19 18:10] LABS: URINE RBC 0 - 2 (NONE SEEN); URINE WBC 0 - 2 (0-2/hpf)
[2017-11-19 18:11] LABS: URINE AMORPHOUS SEDIMENT FEW; URINE BACTERIA FEW; URINE EPITHELIAL CELLS 0 - 2 (FEW)
[2017-11-19] MEDS ORDERED: CEPHALEXIN 500 MG CAPSULE PO STA (18:16)
[2017-11-19] MEDS ORDERED: CEPHALEXIN 500 MG CAPSULE PO SCH (18:30)
--- NOTE | 2017-11-20 20:59 | CT SCAN REPORT ---
EXAM: CT SCAN HEAD WO CONTRAST HISTORY: CONFUSION. TECHNIQUE: Noncontrast head CT. COMPARISON: 05/05/2014. FINDINGS: There is prominence of the ventricles and subarachnoid spaces compatible with atrophy similar to the previous study. There is no mass or mass effect. No intra or extraaxial hemorrhage seen. Areas of white matter hypodensity are present similar to the previous study, likely the result of chronic small vessel ischemic change. No CT evidence for a large acute territorial infarct. No fracture or acute osseous abnormality identified. The visualized sinuses are clear. IMPRESSION: 1. ATROPHY AND CHRONIC SMALL VESSEL ISCHEMIC CHANGE. 2. NO MASS, HEMORRHAGE, OR ACUTE INTRACRANIAL PROCESS IDENTIFIED. JOB NUMBER: [id number] [facility]
--- NOTE | 2017-11-20 21:02 | RADIOLOGY REPORT ---
EXAM: CHEST 2 VIEWS HISTORY: COUGH. TECHNIQUE: Chest x-ray, two views. COMPARISON: 05/16/2015. FINDINGS: The heart is not enlarged and there is no mediastinal mass. There is no acute infiltrate or vascular congestion. There are chronic interstitial changes. The lungs are hyperinflated. IMPRESSION: 1. THERE ARE CHRONIC INTERSTITIAL LUNG CHANGES. 2. LUNGS HYPERINFLATED. 3. NO ACUTE CARDIAC OR PULMONARY ABNORMALITY IDENTIFIED. JOB NUMBER: [id number] [facility]
== END 2017-11-19 18:36 | disposition home or self-care (01) ==
LOC: ER 15:41
DX: J20.9 Acute bronchitis, unspecified (principal); R41.0 Disorientation, unspecified; R53.1 Weakness; R11.2 Nausea with vomiting, unspecified; I48.91 Unspecified atrial fibrillation; Z87.891 Personal history of nicotine dependence
CPT/HCPCS: 70450; 71020; 80048; 81001; 82553; 83735; 84443; 84484; 85025; 93005; 93010; 99284

== ENCOUNTER 2019-03-08 14:23 | Emergency (ER) | payer MEDICARE, BC ==
--- NOTE | 2019-03-08 14:34 | Emergency Department Record ---
History of Present Illness - General Chief Complaint: Laceration(s) Stated Complaint: LACERATION ON ARM Time Seen by Provider: 03/08/19 14:32 Source: Patient, Family Mode of Arrival: Ambulatory Limitations: No limitations - History of Present Illness Initial Commments: 83 yo male presents with a injury to his arm. He injured it just prior to arrival. His right forearm hit the side of his wheelbarrow. He has 2 skin tears. No loss of ROM, no numbness or tingling. He is unsure of his last tetanus shot. He denies and injuries or concerns other than the right forearm. NO headache, neck pain, chest pain, abdominal pain or other extremities complaints. -: Minutes(s) Extremity Location: Right: Forearm Place: Home Context: Accidental Associated Symptoms: None Treatments Prior to Arrival: Bandage - [place] Coma Scale Eye Response: (4) Open spontaneously Motor Response: (6) Obeys commands Verbal Response: (5) Oriented [place] A Total: 15 - Related Data Hx Tetanus Toxoid Vaccination: (unknown) Previous Rx's Medication Instructions Recorded Sulfacetamide Sodium [Bleph10] 2 drop AFFEYE Q6HR #15 ml 05/12/15 Acetaminophen [Tylenol 500Mg Tab] 1,000 mg PO Q6H PRN 07/27/17 Amiodarone HCl [Pacerone] 100 mg PO DAILY 07/27/17 Aspirin Enteric-Coated [Ecotrin 81 mg PO DAILY 07/27/17 (EC)] Ipratropium/Albuterol [Duoneb] 3 ml INH Q6H PRN 07/27/17 Levothyroxine Sodium [Synthroid] 50 mcg PO DAILYTHY 07/27/17 Magnesium Oxide [Mag Ox] 400 mg PO BID tab 07/27/17 Metoprolol Tartrate [Lopressor] 12.5 mg PO BID tab 07/27/17 Mirtazapine [Remeron] 15 mg PO QHS #30 tab 07/27/17 Sennosides/Docusate Sodium [Senna 2 each PO BID #120 tab 07/27/17 Plus] Tramadol HCl [Ultram] 100 mg PO QHS PRN #15 tab 07/27/17 Cephalexin [Keflex] 500 mg PO Q6H #40 capsule 11/19/17 Cephalexin [Keflex] 500 mg PO QID #40 cap 11/19/17 Allergies Allergy/AdvReac Type Severity Reaction Status Date / Time No Known Drug Intolerances Allergy Unknown Unverified 11/26/16 12:38 amoxicillin AdvReac NAUSEA AND Verified 11/19/17 16:03 VOMITING aspirin AdvReac BRUISING Verified 11/19/17 16:03 diphenhydramine AdvReac BLURRED Verified 11/19/17 16:03 VISION rivaroxaban [From Xarelto] AdvReac BRUISING Verified 11/19/17 16:03 sotalol AdvReac CHEST PAIN Verified 11/19/17 16:03 Review of Systems Constitutional: Denies: Chills, Fever, Malaise, Weakness Eyes: Denies: Eye discharge ENT: Denies: Congestion Respiratory: Denies: Cough, Dyspnea, Hemoptysis Cardiovascular: Denies: Chest pain, Palpitations, Syncope Endocrine: Denies: Fatigue Gastrointestinal: Denies: Abdominal pain, Diarrhea, Nausea, Vomiting Genitourinary: Denies: Dysuria, Frequency, Hematuria Musculoskeletal: Reports: Myalgia. Denies: Arthralgia, Back pain, Joint swelling Skin: Reports: Other. Denies: Bruising, Rash Neurological: Denies: Confusion, Headache Psychiatric: Denies: Anxiety Hematological/Lymphatic: Denies: Easy bleeding, Easy bruising Past Medical History - SOCIAL HISTORY Smoking Status: Former smoker Drug Use: None - RESPIRATORY Hx Respiratory Disorders: Yes Hx Asthma: No Hx Bronchitis: No Hx COPD: Yes Hx Dyspnea: No Hx Pneumonia: Yes (oct 29) Hx Pulmonary Embolism: No Hx Sleep Apnea: No Hx Tuberculosis: No Hx of CPAP: No - CARDIOVASCULAR Hx Cardio Disorders: Yes Hx Abnormal EKG: Yes (afib) Hx Cardiac Cath: No Hx Chest Pain: No Hx CHF: No Hx Deep Vein Thrombosis: No Hx Edema: No Hx Heart Attack: No Hx Hypertension: No Hx Hypotension: No Hx Irregular Heartbeat: Yes Hx Palpitations: No Hx Pacemaker/Defib: No Hx Vascular Disease: No Comment:: AAA repair 2017 - NEURO Hx Neuro Disorders: Yes Hx Seizures: No - GI Hx GI Disorders: Yes Hx Abdominal Pain: No Hx Celiac Disease: No Hx Crohn's Disease: No Hx Diverticulitis: No Hx GI Bleed: No Hx Reflux: Yes (meds) Hx Hepatitis/Jaundice: No Hx Hiatal Hernia: No Hx Irritable Bowel: No Hx Liver Disease: No Hx Nausea/Vomiting: No Hx Obstructive Bowel: No Hx Pancreatitis: No Hx Rectal Bleeding: No Hx Ulcer: No Hx Wt Loss/Wt Gain: No Hx of Polyps: Yes - Hx Genitourinary Disorders: Yes Hx Bladder Problem: Yes Hx Dialysis: No Hx Kidney Stones: No Hx Prostate Problems: Yes (turp) Hx Renal Disease: No Hx UTI: No - ENDOCRINE Hx Endocrine Disorders: Yes Hx Diabetes: No Hx Thyroid Disease: Yes - MUSCULOSKELETAL Hx Musculoskeletal Disorders: Yes Hx Arthritis: Yes (ra) Hx Back Injury: No Hx Fibromyalgia: No Hx Gout: No Hx Musculoskeletal Disease: No Hx Osteoporosis: Yes (Prolia injection) Comment:: RA - PSYCH Hx Psych Problems: No - HEMATOLOGY/ONCOLOGY Hx Hematology/Oncology Disorders: Yes Hx Anemia: Yes Hx Blood Disorders: No Hx Bruising: Yes Hx Cancer: Yes (skin cancer) Hx Chemotherapy: No Hx Radiation Therapy: No Hx Clotting Problems: No Hx Sickle Cell Disease: No Hx Unexplained Bleeding: No Hx Blood Transfusions: Yes Hx Blood Transfusion Reaction: No Comment:: cannot use aspirin or Xalarto.. prostate; Family Medical History Family Hx Comment (NOT TO BE USED IN PLACE OF ITEMS BELOW): mother had MS Hx Cancer: Brother/Sister Hx Diabetes: Mother Hx Heart Disease: Brother/Sister Hx Stroke: Mother Physical Exam - General General Appearance: Alert, Oriented x3, Cooperative, No acute distress Limitations: No limitations - Head Head exam: negative: Atraumatic, Normal inspection Head exam detail: negative: Abrasion, Contusion, Hematoma Image of Face/Head: 1 - very faint area of erythema non tender, not swollen - Eye Eye exam: Normal appearance, PERRL. negative: Conjunctival injection, Scleral icterus - ENT ENT exam: Normal exam Ear exam: Normal external inspection Nasal Exam: Normal inspection Mouth exam: Normal external inspection - Neck Neck exam: Normal inspection - Respiratory Respiratory exam: Normal lung sounds bilaterally. negative: Respiratory distress - Cardiovascular Cardiovascular Exam: Regular rate, Normal rhythm, Normal heart sounds Peripheral Pulses: 2+: Radial (R) - GI/Abdominal GI/Abdominal exam: Soft. negative: Tenderness - Rectal Rectal exam: Deferred - exam: Deferred - Extremities Extremities exam: Normal capillary refill. negative: Normal inspection Image of Full Body: 1 - two separate skin tears. The distal is eliptical shape linear 2cm, the proximal is 4 cm with 2cm avulsed section with 7mm gap, not contaminated. - Back Back exam: Denies: CVA tenderness (R), CVA tenderness (L), Tenderness - Neurological Neurological exam: Alert, Oriented X3 - Psychiatric Psychiatric exam: Normal affect, Normal mood - Skin Skin exam: Abrasion, Other (skin tear) Course - Reevaluation(s) Reevaluation #1: The skin tears were cleaned with Hibaclens and and then irrigated with NS The wound margins of the distal tear were pulled together and steri strips placed The proximal wound was about 50% closed. The remaining was dressed with non stick dressings We discussed home care and reasons to return I explained this can takes weeks to heal and he will need to see his PCP to assess progress. 03/08/19 15:00 Disposition Disposition: Discharge Clinical Impression: Skin tear of forearm without complication Disposition: Home, Self-Care Condition: (1) Good Instructions: Skin Tear (ED) Additional Instructions: Call your doctor for the next available follow up appointment to monitor the healing of the skin tears Keep the Steri Strips dry and clean Reapply the non stick dressing daily Return to the ER for a recheck if worse, any new concerns or questions Review this ER visit and the tests performed with your family doctor Forms: Patient Portal Access Time of Disposition: 15:03 Quality - Quality Measures Quality Measures: N/A - Blood Pressure Screening Does Patient Have Any of the Following: Active Dx of HTN Blood Pressure Classification: Pre-Hypertensive BP Reading Systolic Measurement: 125 Diastolic Measurement: 79 Screening for High Blood Pressure: Patient Exclusion, Hx of HTN [G9744]
[2019-03-08] MEDS ORDERED: Diph,Pert(Acell),Tet Vac 0.5 ML SYR IM ONE (14:58)
== END 2019-03-08 15:35 | disposition home or self-care (01) ==
LOC: ER 14:23
DX: S51.811A Laceration without foreign body of right forearm, initial encounter (principal); I10 Essential (primary) hypertension; W22.8XXA Striking against or struck by other objects, initial encounter; Y92.009 Unspecified place in unspecified non-institutional (private) residence as the place of occurrence of the external cause; Z87.891 Personal history of nicotine dependence
CPT/HCPCS: 90715; 96372; 99283

== ENCOUNTER 2019-05-10 10:02 | Day surgery (SDC) | payer MEDICARE, BC ==
[2019-05-10] MEDS ORDERED: LIDOCAINE 2% MDV (20MG/ML) 20ML VIAL IV ONE (10:03)
[2019-05-10] MEDS ORDERED: PROPOFOL 10 MG/ML VIAL IV ONE (10:03)
--- NOTE | 2019-05-11 09:40 | Operative Note ---
DATE OF SURGERY: 05/10/2019 OPERATION: ESOPHAGOGASTRODUODENOSCOPY with biopsy. PREOPERATIVE DIAGNOSIS: Dysphagia. POSTOPERATIVE DIAGNOSES: 1. Friable GE junction ring. 2. Small hiatal hernia. PROCEDURE: After informed consent was obtained from the patient, he was placed in the left lateral decubitus position in the endoscopy suite, sedated and monitored by the department of anesthesia. A well-lubricated [id number] gastroscope was placed in the posterior oropharynx under direct visualization and passed to the proximal esophagus. The endoscope was advanced through the proximal, mid, and distal esophagus. The endoscope traversed the GE junction with ease; however, there was noted to be a tear that was associated with passage through the GE junction. There was a small amount of bleeding noted. There was a small hiatal hernia as well. The subdiaphragmatic stomach including the body and antrum as well as the pylorus, duodenal bulb, and sweep were unremarkable. J- turn views of the proximal stomach revealed a small hiatal hernia but no other abnormalities. The endoscope was then straightened. It was felt that further dilation would not be indicated given the fact there was some bleeding and superficial tears already present. Biopsies were obtained from this area, however, to rule out the possibility of any occult malignancy. The endoscope was removed from the patient. RECOMMENDATIONS: I would suggest the patient continue on a PPI. If his dysphagia persists, I would bring him back for a dilation. As always, thank you for allowing me to participate in the healthcare of your patients. SHANNAN
== END 2019-05-10 12:00 | disposition home or self-care (01) ==
LOC: HOP 10:02
PROVIDERS: ATTEND Internal Medicine Gastroenterology
DX: R13.10 Dysphagia, unspecified (principal); K22.2 Esophageal obstruction; K44.9 Diaphragmatic hernia without obstruction or gangrene; K21.9 Gastro-esophageal reflux disease without esophagitis; M19.90 Unspecified osteoarthritis, unspecified site; E03.9 Hypothyroidism, unspecified